=== PATIENT | female | born 1940 | race Caucasian/White ===

== ENCOUNTER → 2018-01-11 12:03 | Outpatient (CLI) | payer OTHER, SELFPAY ==
[2018-01-11 13:46] LABS: BUN Creatinine Ratio 17.8 (6-22); Blood Urea Nitrogen 16 mg/dL (7-17); Estimated Glomerular Filt Rate > 60.0 mL/min (>60)
== END ==
PROVIDERS: PCP Internal Medicine; Visit Provider Surgery
DX: R91.1 Solitary pulmonary nodule (principal); Z01.812 Encounter for preprocedural laboratory examination
CPT/HCPCS: 36415; 82565; 84520

== ENCOUNTER → 2018-01-14 10:58 | Outpatient (CLI) | payer OTHER, SELFPAY ==
--- NOTE | 2018-01-14 11:11 | DI.CT.S_ITS ---
PROCEDURE: CT CHEST WO CON INDICATIONS: Left lung mass TECHNIQUE: Noncontrast 2.0-2.5 mm thick sections acquired from the pulmonary apices to the posterior costophrenic angles. 7 mm thick coronal and sagittal MIP reformats were then acquired. A low radiation dose technique was utilized. COMPARISON: [facility], [place], ABDOMEN/PELVIS WITHOUT CONTRAS, 05/31/2017, 13:12. [facility], [place], PET/CT SKULL BASE TO MID THIGH, 06/25/2017, 10:09. FINDINGS: Image quality: Diagnostic, given the low radiation dose technique. Lungs and pleura: Multiple bilateral subcentimeter pulmonary nodules are identified and unchanged. The previously noted 1 cm nodule in the left base has markedly decreased in size, measuring approximately 2-3 mm. No new nodules are noted. Mediastinum: Heart size is normal. No pericardial effusion. No mediastinal adenopathy by size criteria. Thoracic aorta and central pulmonary arteries are normal in size. Esophagus is normal in caliber. No hiatal hernia. Bones and chest wall: No suspicious bony lesions. No vertebral body compression fractures. No axillary or supraclavicular adenopathy by size criteria. Thyroid gland is unremarkable. Abdomen: Visualized upper abdomen solid organs and bowel loops appear normal in the absence of contrast. IMPRESSION: 1. Previously identified bilateral subcentimeter pulmonary nodules are unchanged. No new nodules are identified. 2. Previously noted 1 cm nodule in the left base has markedly decreased in size now measuring approximately 2-3 mm. 6-9 month interval followup is recommended. Dictated by: Bren Huggins M.D. on 01/14/2018 at 11:52 Approved by: Bren Huggins M.D. on 01/14/2018 at 12:00
== END ==
PROVIDERS: Family Provider Internal Medicine; PCP Internal Medicine; Visit Provider Surgery
DX: R91.8 Other nonspecific abnormal finding of lung field (principal)
CPT/HCPCS: 71250

== ENCOUNTER → 2018-02-28 12:05 | Outpatient (CLI) | payer OTHER, SELFPAY ==
--- NOTE | 2018-02-28 | DI.MG.S_ITS ---
BILATERAL DIGITAL SCREENING MAMMOGRAM 3D/2D WITH CAD: 02/28/2018 CLINICAL: Routine screening. Family history of breast cancer. Comparison is made to exams dated: 12/01/2016 mammogram, 11/25/2015 mammogram, and 11/14/2014 mammogram - [facility]. There are scattered fibroglandular elements in both breasts. Current study was also evaluated with a Computer Aided Detection (CAD) system. There is a mole marker on the right breast. There are mole markers on the left breast. No significant masses, calcifications, or other findings are seen in either breast. There has been no significant interval change. IMPRESSION: NEGATIVE There is no mammographic evidence of malignancy. A 1 year screening mammogram is recommended. This exam was interpreted at Station ID: [id number]. NOTE: For mammograms, a report in lay terms will be sent to the patient. Approximately 15% of breast malignancies will not be visualized mammographically. In the management of a palpable breast mass, a negative mammogram must not discourage biopsy of a clinically suspicious lesion. Electronically Signed By: Chris young/leeann:03/01/2018 23:43:31 letter sent: Normal Exam ACR BI-RADS Category 1: Negative 3341F
== END ==
PROVIDERS: PCP Internal Medicine; Visit Provider Internal Medicine
DX: Z12.31 Encounter for screening mammogram for malignant neoplasm of breast (principal); Z80.3 Family history of malignant neoplasm of breast
CPT/HCPCS: 77063; 77067

== ENCOUNTER → 2018-06-15 21:17 | Outpatient (CLI) | payer OTHER, SELFPAY | PROVIDERS: PCP Internal Medicine; Visit Provider Physician Assistant | DX: N39.0 Urinary tract infection, site not specified (principal) | CPT/HCPCS: 87086 ==

== ENCOUNTER → 2018-07-28 15:55 | Outpatient (CLI) | payer OTHER, SELFPAY ==
--- NOTE | 2018-07-28 | DI.RAD.S_ITS ---
PROCEDURE: XR SHOULDER LT MIN 2V INDICATIONS: PAIN IN LEFT SHOULDER TECHNIQUE: 3 views of the shoulder were acquired. COMPARISON: None. FINDINGS: Bones: No fractures or dislocations. No suspicious bony lesions. 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 Visualized ribs appear intact. Soft tissues: No suspicious soft tissue calcifications. IMPRESSION: Mild degenerative joint disease. Dictated by: Joel Gomez M.D. on 07/28/2018 at 17:29 Approved by: Joel Gomez M.D. on 07/28/2018 at 17:30
== END ==
PROVIDERS: PCP Internal Medicine; Visit Provider Physician Assistant
DX: M25.512 Pain in left shoulder (principal); M19.012 Primary osteoarthritis, left shoulder
CPT/HCPCS: 73030

== ENCOUNTER → 2018-08-27 10:03 | Outpatient (CLI) | payer OTHER, SELFPAY | PROVIDERS: PCP Internal Medicine; Visit Provider Physician Assistant | DX: N39.0 Urinary tract infection, site not specified (principal) | CPT/HCPCS: 87086 ==

== ENCOUNTER → 2018-10-11 10:40 | Outpatient (CLI) | payer OTHER, SELFPAY ==
--- NOTE | 2018-10-11 | DI.US.S_ITS ---
PROCEDURE: US RENAL COMPLETE INDICATIONS: RECURRENT URINARY TRACT INFECTIONS TECHNIQUE: Real-time scanning was performed of the kidneys and bladder, with image documentation. COMPARISON: [facility], US, US ABDOMEN COMPLETE, 03/24/2017, 11:16. [facility], CT, ABDOMEN/PELVIS WITHOUT CONTRAS, 05/31/2017, 13:12. FINDINGS: Kidneys: Kidneys are normal in size. Right kidney measures 8.5 cm long; left kidney measures 9.6 cm long. Right renal cortical thickness is 6 cm; left renal cortical thickness is 9 cm. Renal cortical echotexture is normal. No hydronephrosis or nephrolithiasis. No suspicious solid mass lesions. Bladder: The bladder wall may be slightly thickened. Pre-void bladder volume is 238 mL. Post-void residual is 181 mL. Pre-void images demonstrate no intraluminal masses or stones. On pre-void images, neither ureteral jets are noted with color Doppler interrogation. (Of note, ureteral jets may not be detectable in up to 25% of cases due to insufficient differences in specific gravity between ureteral and bladder urine). Miscellaneous: No free pelvic fluid. IMPRESSION: 1. Normal kidneys bilaterally. No hydronephrosis. 2. The bladder wall may be slightly thickened. There is a 181 mL postvoid residual in the bladder suggesting urinary retention. Dictated by: Joel Gomez M.D. on 10/11/2018 at 12:45 Approved by: Joel Gomez M.D. on 10/11/2018 at 12:51
== END ==
PROVIDERS: PCP Internal Medicine; Visit Provider Urology
DX: N39.0 Urinary tract infection, site not specified (principal)
CPT/HCPCS: 76770

== ENCOUNTER → 2018-11-03 11:44 | Outpatient (CLI) | payer OTHER, SELFPAY ==
--- NOTE | 2018-11-03 | DI.CT.S_ITS ---
PROCEDURE: CT SINUS SCREEN WO CON INDICATIONS: Acute maxillary sinusitis, unspecified TECHNIQUE: Noncontrast 3.0 mm axial images acquired from the frontal sinuses to the mid-sella, with coronal and sagittal reformats. For radiation dose reduction, the following was used: automated exposure control, adjustment of mA and/or kV according to patient size. COMPARISON: None. FINDINGS: Image quality: Excellent. Maxillary Sinuses: No bony remodeling or destruction. Sinuses are clear. Ethmoid Air Cells: No bony remodeling or destruction. Sinuses are clear. Sphenoid Sinuses: No bony remodeling or destruction. Sinuses are clear. Frontal Sinuses: No bony remodeling or destruction. Sinuses are clear. Ostiomeatal Complexes: Ostiomeatal complexes are patent. No Tami cells. Miscellaneous: Visualized intra-orbital contents are normal. No paradoxical turbinate curvature is found, but there is lali bullosa involving the right middle nasal turbinate measuring up to 1.5 cm in diameter and secondary leftward deviation of the midline nasal septum with associated bilateral nasal airway stenosis through that area.. No nasal septal deviation. 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 Within the paranasal sinuses, however, no inflammatory change or air fluid level was seen. Dictated by: Taran Real M.D. on 11/03/2018 at 12:49 Approved by: Taran Real M.D. on 11/03/2018 at 12:55
== END ==
PROVIDERS: PCP Internal Medicine; Visit Provider Internal Medicine
DX: J01.00 Acute maxillary sinusitis, unspecified (principal); J34.3 Hypertrophy of nasal turbinates; J34.2 Deviated nasal septum
CPT/HCPCS: 70486

== ENCOUNTER → 2019-02-10 10:06 | Outpatient (CLI) | payer OTHER, SELFPAY | PROVIDERS: PCP Internal Medicine; Visit Provider Internal Medicine | DX: M85.88 Other specified disorders of bone density and structure, other site (principal); M85.852 Other specified disorders of bone density and structure, left thigh; M85.851 Other specified disorders of bone density and structure, right thigh; Z78.0 Asymptomatic menopausal state | CPT/HCPCS: 77080 ==

== ENCOUNTER → 2019-03-02 12:14 | Outpatient (CLI) | payer OTHER, SELFPAY ==
--- NOTE | 2019-03-02 | DI.MG.S_ITS ---
BILATERAL DIGITAL SCREENING MAMMOGRAM 3D/2D WITH CAD: 03/02/2019 CLINICAL: Routine screening. Family history of breast cancer. Comparison is made to exams dated: 02/28/2018 mammogram, 12/01/2016 mammogram, and 11/25/2015 mammogram - [facility]. There are scattered fibroglandular elements in both breasts. Current study was also evaluated with a Computer Aided Detection (CAD) system. There is an irregular asymmetry in the right breast posterior depth superior region seen on the mediolateral oblique view only. There is possible architectural distortion associated with the asymmetry. No other significant masses, calcifications, or other findings are seen in either breast. IMPRESSION: INCOMPLETE: NEEDS ADDITIONAL IMAGING EVALUATION The irregular asymmetry in the right breast is indeterminate. Additional views with possible ultrasound are recommended. This exam was interpreted at Station ID: [id number]. NOTE: For mammograms, a report in lay terms will be sent to the patient. Approximately 15% of breast malignancies will not be visualized mammographically. In the management of a palpable breast mass, a negative mammogram must not discourage biopsy of a clinically suspicious lesion. Electronically Signed By: Chris Mak M.D. ecl/:03/03/2019 04:47:05 letter sent: Additional Imaging Needed ACR BI-RADS Category 0: Incomplete 3340F
== END ==
PROVIDERS: PCP Internal Medicine; Visit Provider Internal Medicine
DX: Z12.31 Encounter for screening mammogram for malignant neoplasm of breast (principal); Z80.3 Family history of malignant neoplasm of breast
CPT/HCPCS: 77063; 77067

== ENCOUNTER → 2019-03-21 13:30 | Outpatient (CLI) | payer OTHER, SELFPAY ==
--- NOTE | 2019-03-21 | DI.MG.S_ITS ---
UNILATERAL RIGHT DIGITAL DIAGNOSTIC MAMMOGRAM 3D/2D WITH ADDITIONAL VIEWS: 03/21/2019 CLINICAL: Additional evaluation requested from prior study. Comparison is made to exams dated: 03/02/2019 mammogram, 02/28/2018 mammogram, and 12/01/2016 mammogram - [facility]. There are scattered fibroglandular elements in right breast. The asymmetry in the right breast posterior depth superior region seen on the mediolateral oblique view only is not seen in additional views. No other significant masses or calcifications are seen in the breast. IMPRESSION: The asymmetry in the right breast seen on the screening mammogram likely respresents superimposed fibroglandular tissue and is benign. There is no mammographic evidence of malignancy. A 1 year screening mammogram is recommended. This exam was interpreted at Station ID: [id number]. NOTE: For mammograms, a report in lay terms will be sent to the patient. Approximately 15% of breast malignancies will not be visualized mammographically. In the management of a palpable breast mass, a negative mammogram must not discourage biopsy of a clinically suspicious lesion. Electronically Signed By: Alisia Rivera M.D. lk/:03/21/2019 13:58:32 letter sent: Normal Exam ACR BI-RADS Category 2: Benign Finding(s) 3342F
== END ==
PROVIDERS: PCP Internal Medicine; Visit Provider Internal Medicine
DX: R92.8 Other abnormal and inconclusive findings on diagnostic imaging of breast (principal); N64.89 Other specified disorders of breast
CPT/HCPCS: 77065; G0279

== ENCOUNTER → 2019-05-25 15:28 | Outpatient (ROUT) | payer OTHER, SELFPAY ==
[2019-05-25 16:59] LABS: Aspartate Aminotransferase 32 IU/L (14-36); BUN Creatinine Ratio 17.5 (6-22); Blood Urea Nitrogen 14 mg/dL (7-17); Calcium 9.1 mg/dL (8.4-10.2); Carbon Dioxide 30 mmol/L (22-32); Chloride 96 mmol/L (98-107); Cholesterol 137 mg/dL (140-199); Estimated Glomerular Filt Rate > 60.0 mL/min (>60); Glucose 70 mg/dL (80-110); HDL Cholesterol 58 mg/dL (40-60); HEMOLYSIS < 15 (0-50); LDL Cholesterol Calculated 66 mg/dL (<100); Potassium 4.4 mmol/L (3.4-5.1); Sodium 133 mmol/L (137-145); Triglycerides 63 mg/dL (35-150)
== END ==
PROVIDERS: PCP Internal Medicine; Visit Provider Internal Medicine
DX: E78.2 Mixed hyperlipidemia (principal); I10 Essential (primary) hypertension
CPT/HCPCS: 80048; 80061; 84450

== ENCOUNTER → 2020-03-22 10:30 | Outpatient (CLI) | payer MEDICARE, SELFPAY ==
--- NOTE | 2020-03-22 | DI.MG.S_ITS ---
BILATERAL DIGITAL SCREENING MAMMOGRAM 3D/2D WITH CAD: 03/22/2020 CLINICAL: Routine screening. Family history of breast cancer. Comparison is made to exams dated: 03/02/2019 mammogram, 02/28/2018 mammogram, 12/01/2016 mammogram, 11/04/2011 mammogram, 11/10/2013 mammogram, and 11/08/2012 mammogram - [facility]. There are scattered fibroglandular elements in both breasts. Current study was also evaluated with a Computer Aided Detection (CAD) system. No significant masses, calcifications, or other findings are seen in either breast. There has been no significant interval change. IMPRESSION: NEGATIVE There is no mammographic evidence of malignancy. A 1 year screening mammogram is recommended. This exam was interpreted at Station ID: [id number]. NOTE: For mammograms, a report in lay terms will be sent to the patient. Approximately 15% of breast malignancies will not be visualized mammographically. In the management of a palpable breast mass, a negative mammogram must not discourage biopsy of a clinically suspicious lesion. Electronically Signed By: Armond andrea/leeann:03/22/2020 12:47:11 letter sent: Normal Exam ACR BI-RADS Category 1: Negative 3341F
== END ==
PROVIDERS: PCP Internal Medicine; Referring Provider Internal Medicine; Visit Provider Internal Medicine
DX: Z12.31 Encounter for screening mammogram for malignant neoplasm of breast (principal); Z80.3 Family history of malignant neoplasm of breast
CPT/HCPCS: 77063; 77067

== ENCOUNTER → 2020-05-31 18:51 | Outpatient (ROUT) | payer MEDICARE, SELFPAY ==
[2020-05-31 19:20] LABS: Aspartate Aminotransferase 30 IU/L (14-36); BUN Creatinine Ratio 22.5 (6-22); Blood Urea Nitrogen 18 mg/dL (7-17); Calcium 9.8 mg/dL (8.4-10.2); Carbon Dioxide 35 mmol/L (22-32); Chloride 94 mmol/L (98-107); Cholesterol 137 mg/dL (140-199); Estimated Glomerular Filt Rate > 60.0 mL/min (>60); Glucose 83 mg/dL (80-110); HDL Cholesterol 56 mg/dL (40-60); HEMOLYSIS < 15 (0-50); LDL Cholesterol Calculated 68 mg/dL (<100); Potassium 4.5 mmol/L (3.4-5.1); Sodium 132 mmol/L (137-145); Triglycerides 64 mg/dL (35-150)
== END ==
PROVIDERS: PCP Internal Medicine; Visit Provider Internal Medicine
DX: I10 Essential (primary) hypertension (principal); E78.2 Mixed hyperlipidemia
CPT/HCPCS: 80048; 80061; 84450

== ENCOUNTER → 2021-03-25 15:38 | Outpatient (CLI) | payer OTHER, SELFPAY ==
--- NOTE | 2021-03-25 15:39 | DI.MG.S_ITS ---
BILATERAL DIGITAL SCREENING MAMMOGRAM 3D/2D WITH CAD: 03/25/2021 CLINICAL: Routine screening. Family history of breast cancer. Baseline exam. Comparison is made to exams dated: 03/21/2019 mammogram, 03/22/2020 mammogram, 03/02/2019 mammogram, and 02/28/2018 mammogram - [facility]. There are scattered fibroglandular elements in both breasts. Current study was also evaluated with a Computer Aided Detection (CAD) system. There is a mole marker on both breasts. No significant masses, calcifications, or other findings are seen in either breast. There has been no significant interval change. IMPRESSION: NEGATIVE There is no mammographic evidence of malignancy. A 1 year screening mammogram is recommended. This exam was interpreted at Station ID: [id number]. NOTE: For mammograms, a report in lay terms will be sent to the patient. Approximately 15% of breast malignancies will not be visualized mammographically. In the management of a palpable breast mass, a negative mammogram must not discourage biopsy of a clinically suspicious lesion. Electronically Signed By: Troy Platt acr/penrad:03/25/2021 17:16:24 letter sent: Normal Exam ACR BI-RADS Category 1: Negative 3341F
== END ==
PROVIDERS: PCP Internal Medicine; Referring Provider Internal Medicine; Visit Provider Internal Medicine
DX: Z12.31 Encounter for screening mammogram for malignant neoplasm of breast (principal); Z80.3 Family history of malignant neoplasm of breast
CPT/HCPCS: 77063; 77067

== ENCOUNTER → 2021-06-09 10:56 | Outpatient (CLI) | payer OTHER, MEDICARE, SELFPAY ==
--- NOTE | 2021-06-09 10:59 | DI.RAD.S_ITS ---
PROCEDURE: XR DEXA AXIAL SKELETON INDICATIONS: Age-related osteoporosis without current pathologi COMPARISON: [facility], CR, XR DEXA AXIAL SKELETON, 02/10/2019, 10:34. FINDINGS: This blank DEXA report has been sent in error by the PACS system. The correct and complete report will be forthcoming in 1-2 days. Thank you for your patience and understanding. Dictated by: Agueda Rivas MD, PhD on 06/09/2021 at 11:28 Approved by: Agueda Rivas MD, PhD on 06/09/2021 at 11:28
== END ==
PROVIDERS: PCP Internal Medicine; Referring Provider Internal Medicine Endocrinology, Diabetes & Metabolism; Visit Provider Internal Medicine Endocrinology, Diabetes & Metabolism
DX: M85.852 Other specified disorders of bone density and structure, left thigh (principal); Z78.0 Asymptomatic menopausal state
CPT/HCPCS: 77080

== ENCOUNTER → 2021-08-10 09:20 | Outpatient (CLI) | payer OTHER, SELFPAY | PROVIDERS: PCP Internal Medicine; Visit Provider Nurse Practitioner Family | DX: N39.0 Urinary tract infection, site not specified (principal) | CPT/HCPCS: 87077; 87086 ==

== ENCOUNTER → 2022-01-23 11:03 | Outpatient (CLI) | payer OTHER, SELFPAY ==
[2022-01-23 12:28] LABS: Hematocrit 35.2 % (36-46); Hemoglobin 11.7 g/dL (12.0-16.0); Mean Corpuscular HGB Conc 33.2 % (30-36); Mean Corpuscular Hemoglobin 30.1 PG (26-34); Mean Corpuscular Volume 90.6 fL (80-100); Platelet Count 211 X10^3/uL (150-400); Red Blood Cell Count 3.89 X10^6/uL (4.0-5.2); Red Cell Distribution Width 14.1 % (11.6-14.8); White Blood Cell Count 4.6 X10^3/uL (4.5-11.0)
[2022-01-23 13:04] LABS: Alanine Aminotransferase 14 IU/L (<35); Albumin 4.3 g/dL (3.5-5.0); Albumin Globulin Ratio 1.4 (1.0-2.8); Alkaline Phosphatase 62 U/L (38-126); Aspartate Aminotransferase 32 IU/L (14-36); BUN Creatinine Ratio 19.4 (6-22); Bilirubin Total 0.3 mg/dL (0.2-1.3); Blood Urea Nitrogen 19 mg/dL (7-17); Calcium 9.7 mg/dL (8.4-10.2); Carbon Dioxide 33 mmol/L (22-32); Chloride 97 mmol/L (98-107); Cholesterol 140 mg/dL (140-199); Estimated Glomerular Filt Rate 58 mL/min (>60); Glucose 78 mg/dL (80-110); HDL Cholesterol 54 mg/dL (40-60); HEMOLYSIS < 15 (0-50); LDL Cholesterol Calculated 73 mg/dL (<100); Potassium 4.6 mmol/L (3.4-5.1); Sodium 134 mmol/L (137-145); Total Protein 7.3 g/dL (6.3-8.2); Triglycerides 65 mg/dL (35-150)
[2022-01-23 13:35] LABS: TSH w/ Reflex to FT4 7.71 uIU/mL (0.47-4.68)
[2022-01-23 16:01] LABS: Free T4, Direct Thyroxine 1.28 ng/dL (0.78-2.19)
== END ==
PROVIDERS: PCP Internal Medicine; Referring Provider Internal Medicine; Visit Provider Internal Medicine
DX: E78.2 Mixed hyperlipidemia (principal); L12.0 Bullous pemphigoid
CPT/HCPCS: 36415; 80053; 80061; 84439; 84443; 85027

== ENCOUNTER → 2022-03-26 13:07 | Outpatient (CLI) | payer OTHER, SELFPAY ==
--- NOTE | 2022-03-26 | DI.MG.S_ITS ---
BILATERAL DIGITAL SCREENING MAMMOGRAM 3D/2D WITH CAD: 03/26/2022 CLINICAL: Routine screening. Family history of breast cancer. Comparison is made to exams dated: 03/25/2021 mammogram, 03/22/2020 mammogram, 03/21/2019 mammogram, and 03/02/2019 mammogram - [facility]. There are scattered areas of fibroglandular density in both breasts (category b / 25%-50% glandular tissue). Current study was also evaluated with a Computer Aided Detection (CAD) system. There is a mole marker on both breasts. No significant masses, calcifications, or other findings are seen in either breast. There has been no significant interval change. IMPRESSION: NEGATIVE There is no mammographic evidence of malignancy. A 1 year screening mammogram is recommended. Based on the Tyrer Cuzick model (a risk assessment model) the patient's lifetime risk is 0.9% and her 10 year risk is 0.0%. According to the ACR, ACS, and NCCN guidelines, an annual breast MRI exam along with mammogram is recommended if the patient's lifetime risk is 20% or greater. This exam was interpreted at Station ID: [id number]. NOTE: For mammograms, a report in lay terms will be sent to the patient. Approximately 15% of breast malignancies will not be visualized mammographically. In the management of a palpable breast mass, a negative mammogram must not discourage biopsy of a clinically suspicious lesion. Electronically Signed By: Jessee Alicea M.D., jr/leeann:03/26/2022 14:42:03 letter sent: Normal Exam ACR BI-RADS Category 1: Negative 3341F
== END ==
PROVIDERS: PCP Internal Medicine; Referring Provider Internal Medicine; Visit Provider Internal Medicine
DX: Z12.31 Encounter for screening mammogram for malignant neoplasm of breast (principal); Z80.3 Family history of malignant neoplasm of breast
CPT/HCPCS: 77063; 77067

== ENCOUNTER → 2022-05-27 14:02 | Outpatient (CLI) | payer OTHER, SELFPAY ==
[2022-05-27 15:07] LABS: Influenza A - CEPHEID Flu A NEGATIVE (NEGATIVE); Influenza B - CEPHEID Flu B NEGATIVE (NEGATIVE); Respiratory Syncytial Virus Negative (Negative)
[2022-05-27 15:08] LABS: COVID-19 CEPHEID 4-PLEX PCR Negative (Negative)
== END ==
PROVIDERS: PCP Internal Medicine; Visit Provider Registered Nurse
DX: H92.09 Otalgia, unspecified ear (principal); R09.81 Nasal congestion; Z20.822 Contact with and (suspected) exposure to COVID-19
CPT/HCPCS: 0241U

== ENCOUNTER → 2023-01-26 15:37 | Outpatient (CLI) | payer OTHER, SELFPAY ==
[2023-01-26 16:38] LABS: Blood Urea Nitrogen 18 mg/dL (7-17); Calcium 8.9 mg/dL (8.4-10.2); Chloride 100 mmol/L (98-107); HEMOLYSIS < 15 (0-50); Triglycerides 68 mg/dL (35-150)
[2023-01-26 17:01] LABS: Aspartate Aminotransferase 35 IU/L (14-36); BUN Creatinine Ratio 19.1 (6-22); Carbon Dioxide 29 mmol/L (22-32); Cholesterol 140 mg/dL (140-199); Estimated Glomerular Filt Rate > 60 mL/min (>60); Glucose 87 mg/dL (80-110); HDL Cholesterol 52 mg/dL (40-60); LDL Cholesterol Calculated 74 mg/dL (<100); Potassium 4.5 mmol/L (3.4-5.1); Sodium 132 mmol/L (137-145)
== END ==
PROVIDERS: PCP Internal Medicine; Referring Provider Internal Medicine; Visit Provider Internal Medicine
DX: E78.2 Mixed hyperlipidemia (principal); L12.0 Bullous pemphigoid
CPT/HCPCS: 80048; 80061; 84450

== ENCOUNTER → 2023-03-30 13:56 | Outpatient (CLI) | payer OTHER, SELFPAY ==
--- NOTE | 2023-03-30 | DI.MG.S_ITS ---
BILATERAL DIGITAL SCREENING MAMMOGRAM 3D/2D WITH CAD: 03/30/2023 CLINICAL: Routine screening. Family history of breast cancer. Comparison is made to exams dated: 03/26/2022 mammogram, 03/25/2021 mammogram, and 03/22/2020 mammogram - [facility]. There are scattered areas of fibroglandular density in both breasts (category b / 25%-50% glandular tissue). Current study was also evaluated with a Computer Aided Detection (CAD) system. There is a mole marker on both breasts. No significant masses, calcifications, or other findings are seen in either breast. There has been no significant interval change. IMPRESSION: NEGATIVE There is no mammographic evidence of malignancy. A 1 year screening mammogram is recommended. Based on the Tyrer Cuzick model (a risk assessment model) the patient's lifetime risk is 0.6% and her 10 year risk is 0.0%. According to the ACR, ACS, and NCCN guidelines, an annual breast MRI exam along with mammogram is recommended if the patient's lifetime risk is 20% or greater. This exam was interpreted at Station ID: [id number]. NOTE: For mammograms, a report in lay terms will be sent to the patient. Approximately 15% of breast malignancies will not be visualized mammographically. In the management of a palpable breast mass, a negative mammogram must not discourage biopsy of a clinically suspicious lesion. Electronically Signed By: Alisia abdalla/leeann:03/30/2023 16:47:05 letter sent: Normal Exam ACR BI-RADS Category 1: Negative 3341F
== END ==
PROVIDERS: PCP Internal Medicine; Referring Provider Internal Medicine; Visit Provider Internal Medicine
DX: Z12.31 Encounter for screening mammogram for malignant neoplasm of breast (principal); Z80.3 Family history of malignant neoplasm of breast
CPT/HCPCS: 77063; 77067

== ENCOUNTER → 2023-05-27 14:13 | Outpatient (CLI) | payer OTHER, SELFPAY ==
[2023-05-27 15:15] LABS: Add Manual Diff / Slide Review NO; Basophils Absolute Auto 0 /uL (0-100); Basophils Percent Auto 0.3 % (0-2); Eosinophils Absolute Auto 0 /uL (0-450); Eosinophils Percent Auto 0.1 % (2-4); Hematocrit 36.4 % (36-46); Hemoglobin 12.1 g/dL (12.0-16.0); Lymphocytes Absolute Auto 600 /uL (1100-4500); Lymphocytes Percent Auto 7.7 % (25-40); Mean Corpuscular HGB Conc 33.3 % (30-36); Mean Corpuscular Hemoglobin 31.2 PG (26-34); Mean Corpuscular Volume 93.8 fL (80-100); Monocytes Absolute Auto 400 /uL (0-900); Monocytes Percent Auto 4.9 % (3-14); Neutrophils Absolute Auto 6300 /uL (1500-7000); Platelet Count 209 X10^3/uL (150-400); Red Blood Cell Count 3.87 X10^6/uL (4.0-5.2); Red Cell Distribution Width 15.2 % (11.6-14.8); White Blood Cell Count 7.3 X10^3/uL (4.5-11.0)
[2023-05-27 19:42] LABS: Alanine Aminotransferase 24 IU/L (<35); Albumin 3.7 g/dL (3.5-5.0); Albumin Globulin Ratio 1.5 (1.0-2.8); Alkaline Phosphatase 87 U/L (38-126); Aspartate Aminotransferase 28 IU/L (14-36); BUN Creatinine Ratio 22.1 (6-22); Bilirubin Total 0.5 mg/dL (0.2-1.3); Blood Urea Nitrogen 21 mg/dL (7-17); Calcium 8.7 mg/dL (8.4-10.2); Carbon Dioxide 25 mmol/L (22-32); Chloride 98 mmol/L (98-107); Estimated Glomerular Filt Rate 59 mL/min (>60); Globulin 2.5 g/dL (1.7-4.1); Glucose 133 mg/dL (80-110); HEMOLYSIS < 15 (0-50); Potassium 4.3 mmol/L (3.4-5.1); Sodium 129 mmol/L (137-145); Total Protein 6.2 g/dL (6.3-8.2)
[2023-05-27 19:50] LABS: NT-proBNP (BNP-Adult 18+) 326 pg/mL (<450)
[2023-05-28 20:09] LABS: Vitamin B12 396 pg/mL (239-931)
== END ==
PROVIDERS: PCP Internal Medicine; Referring Provider Physician Assistant; Visit Provider Physician Assistant
DX: M25.473 Effusion, unspecified ankle (principal)
CPT/HCPCS: 36415; 80053; 82607; 83880; 85025

== ENCOUNTER → 2023-05-31 14:07 | Outpatient (CLI) | payer OTHER, SELFPAY ==
--- NOTE | 2023-05-31 14:08 | DI.US.S_ITS ---
PROCEDURE: US PERIPH VENOUS LOW EXTREM LT INDICATIONS: ANKLE SWELLING - RULE OUT DEEP VEIN THROMBOSIS TECHNIQUE: Real-time imaging, as well as color and pulse Doppler interrogation, were performed of the lower extremity deep veins from the inguinal ligament to the popliteal fossa, with documentation of the visualized calf veins. COMPARISON: None. FINDINGS: The common femoral, femoral, popliteal, and the visualized calf veins are normally compressible, and free of intraluminal thrombus. Color and pulse Doppler demonstrate normal phasic intraluminal flow. There is normal augmentation response to distal compression maneuver. IMPRESSION: No findings of left lower extremity deep venous thrombosis. Dictated by: Lisa Anderson M.D. on 05/31/2023 at 15:36 Approved by: Lisa Anderson M.D. on 05/31/2023 at 15:43
== END ==
PROVIDERS: PCP Internal Medicine; Referring Provider Physician Assistant; Visit Provider Physician Assistant
DX: M25.473 Effusion, unspecified ankle (principal)
CPT/HCPCS: 93971

== ENCOUNTER → 2023-08-10 16:11 | Outpatient (CLI) | payer OTHER, SELFPAY | PROVIDERS: PCP Internal Medicine; Visit Provider Physician Assistant | DX: R30.0 Dysuria (principal) | CPT/HCPCS: 87086 ==

== ENCOUNTER → 2023-09-03 11:08 | Outpatient (CLI) | payer OTHER, SELFPAY ==
[2023-09-03 12:22] LABS: Hemoglobin A1C% w Est Avg Glu 5.3 % (4.0-6.0)
[2023-09-03 13:11] LABS: BUN Creatinine Ratio 18.3 (6-22); Blood Urea Nitrogen 19 mg/dL (7-17); Calcium 9.2 mg/dL (8.4-10.2); Carbon Dioxide 29 mmol/L (22-32); Chloride 102 mmol/L (98-107); Estimated Glomerular Filt Rate 53 mL/min (>60); Glucose 81 mg/dL (80-110); HEMOLYSIS < 15 (0-50); Potassium 4.5 mmol/L (3.4-5.1); Sodium 135 mmol/L (137-145)
[2023-09-03 13:33] LABS: TSH w/ Reflex to FT4 9.48 uIU/mL (0.47-4.68)
[2023-09-03 13:53] LABS: Vitamin B12 Reflex MMA if <400 484 pg/mL (239-931)
== END ==
PROVIDERS: PCP Internal Medicine; Referring Provider Internal Medicine; Visit Provider Internal Medicine
DX: R73.09 Other abnormal glucose (principal); E87.1 Hypo-osmolality and hyponatremia; E53.8 Deficiency of other specified B group vitamins; R79.89 Other specified abnormal findings of blood chemistry
CPT/HCPCS: 36415; 80048; 82607; 83036; 84439; 84443

== ENCOUNTER → 2024-02-01 15:17 | Outpatient (CLI) | payer OTHER, SELFPAY ==
[2024-02-01 16:58] LABS: Aspartate Aminotransferase 28 IU/L (14-36); BUN Creatinine Ratio 18.4 (6-22); Blood Urea Nitrogen 19 mg/dL (7-17); Calcium 8.8 mg/dL (8.4-10.2); Carbon Dioxide 27 mmol/L (22-32); Chloride 102 mmol/L (98-107); Cholesterol 137 mg/dL (140-199); Estimated Glomerular Filt Rate 54 mL/min (>60); Glucose 88 mg/dL (80-110); HDL Cholesterol 57 mg/dL (40-60); HEMOLYSIS < 15 (0-50); LDL Cholesterol Calculated 63 mg/dL (<100); Potassium 4.4 mmol/L (3.4-5.1); Sodium 136 mmol/L (137-145); Triglycerides 84 mg/dL (35-150)
[2024-02-01 17:03] LABS: Hemoglobin A1C% w Est Avg Glu 5.3 % (4.0-6.0)
[2024-02-01 17:33] LABS: TSH w/ Reflex to FT4 3.68 uIU/mL (0.47-4.68)
[2024-02-02 23:12] LABS: Thyroid Peroxidase Antibodies 140 IU/mL (0-34)
== END ==
PROVIDERS: PCP Internal Medicine; Referring Provider Internal Medicine; Visit Provider Internal Medicine
DX: R73.01 Impaired fasting glucose (principal); E78.2 Mixed hyperlipidemia; E03.9 Hypothyroidism, unspecified
CPT/HCPCS: 36415; 80048; 80061; 83036; 84443; 84450; 86376

== ENCOUNTER → 2024-03-08 17:07 | Outpatient (CLI) | payer OTHER, SELFPAY ==
--- NOTE | 2024-03-08 17:08 | DI.MRI.S_ITS ---
PROCEDURE: MR HEAD/BRAIN WO/W CON INDICATIONS: Left pupil larger than left and fixed/nonresponsive TECHNIQUE: Noncontrast axial T1 spin echo, axial T2 fast spin echo, sagittal and axial FLAIR, coronal T2 fast spin echo, axial gradient echo, axial diffusion and ADC through the brain. After the administration of contrast, axial and coronal and sagittal T1 spin echo with fat saturation through the brain. COMPARISON: None. FINDINGS: Image quality: Excellent. CSF spaces: Basal cisterns are patent. No extra-axial fluid collections. Ventricles are normal in size and shape. Brain: No midline shift. No intracranial bleeds or masses. No abnormal intracranial enhancement. There is cerebral volume loss for age. There is periventricular white matter chronic small vessel ischemic change. The brainstem appears normal. Diffusion-weighted images demonstrate no acute infarct. No chronic ischemic insults. Normal intravascular flow voids are present. Incidental note is made of a developmental venous anomaly within the right medial cerebellum, as on series 13, image 57 and on series 15, image 80. Skull and face: Calvarial marrow is normal in signal. Orbits appear normal. Note is made of bilateral lens replacements. Sinuses: Sinuses and mastoids appear clear. IMPRESSION: No imaging explanation is found for this patient's presenting symptoms. No masses or abnormal enhancement can be seen. Additional findings: Bilateral lens replacements Right medial cerebellum developmental venous anomaly Dictated by: Vini Torres M.D. on 03/09/2024 at 10:39 Approved by: Vini Torres M.D. on 03/09/2024 at 10:41
== END ==
PROVIDERS: Family Provider Internal Medicine; PCP Internal Medicine; Referring Provider Physician Assistant; Visit Provider Physician Assistant
DX: H57.02 Anisocoria (principal); H57.04 Mydriasis; H57.9 Unspecified disorder of eye and adnexa; Z96.1 Presence of intraocular lens
CPT/HCPCS: 70553; A9579

== ENCOUNTER → 2024-04-14 09:58 | Outpatient (CLI) | payer OTHER, SELFPAY ==
--- NOTE | 2024-04-14 09:58 | DI.MG.S_ITS ---
BILATERAL DIGITAL SCREENING MAMMOGRAM 3D/2D WITH CAD: 04/14/2024 CLINICAL: Routine screening. Family history of breast cancer. Comparison is made to exams dated: 03/30/2023 mammogram, 03/26/2022 mammogram, and 03/25/2021 mammogram - [facility]. There are scattered areas of fibroglandular density (category b / 25%-50% glandular tissue). Current study was also evaluated with a Computer Aided Detection (CAD) system. There is a mole marker on both breasts. No significant masses, calcifications, or other findings are seen in either breast. There has been no significant interval change. IMPRESSION: NEGATIVE There is no mammographic evidence of malignancy. A 1 year screening mammogram is recommended. Based on the Tyrer Cuzick model (a risk assessment model) the patient's lifetime risk is 0.3% and her 10 year risk is 0.0%. According to the ACR, ACS, and NCCN guidelines, an annual breast MRI exam along with mammogram is recommended if the patient's lifetime risk is 20% or greater. This exam was interpreted at Station ID: [id number]. NOTE: For mammograms, a report in lay terms will be sent to the patient. Approximately 15% of breast malignancies will not be visualized mammographically. In the management of a palpable breast mass, a negative mammogram must not discourage biopsy of a clinically suspicious lesion. Electronically Signed By: Armond andrea/leeann:04/17/2024 07:43:55 letter sent: Normal Exam ACR BI-RADS Category 1: Negative
== END ==
PROVIDERS: Family Provider Internal Medicine; PCP Internal Medicine; Referring Provider Internal Medicine; Visit Provider Internal Medicine
DX: Z12.31 Encounter for screening mammogram for malignant neoplasm of breast (principal); Z80.3 Family history of malignant neoplasm of breast
CPT/HCPCS: 77063; 77067

== ENCOUNTER 2024-05-03 09:45 | Outpatient (RCR) | payer OTHER, SELFPAY ==
--- NOTE | 2024-03-27 13:45 | PT.OIE ---
Current Diagnoses Strain of unspecified muscle(s) and tendon(s) at lower leg level, right leg, subsequent encounter (03/27/24) History of falling (03/27/24) Past Medical History (Last Updated 02/01/24 @ 13:08 by Damien Pyle MD) Abnormal Pap smear of cervix Acquired hypothyroidism Allergic rhinitis Asthma, mild intermittent Chicken pox Chronic back pain (~1960) Colon polyps Esophageal ring (~2010) Frequent UTI (~1961) Genital warts (~1987) Geographic tongue GERD (gastroesophageal reflux disease) (~2018) Heavy menstrual period Impaired fasting glucose Measles Menopausal syndrome Mumps Osteopenia (~2014) Osteopenia Polyneuropathy, unspecified Recurrent sinusitis Saphenofemoral venous reflux (~2017) Seasonal allergies (~1959) Venous (peripheral) insufficiency Past Surgical History (Last Reviewed 02/01/24 @ 12:59 by Damien Pyle MD) Anesthesia History of cataract removal with insertion of prosthetic lens (10/29/15) History of cataract removal with insertion of prosthetic lens (11/12/15) History of colonoscopy (~2010) History of surgery (~2017) Status post arthroscopy (~2013) Status post hysterectomy (~1978) Visit Care Team Role Provider Type Damien Pyle MD Family Provider Physician Primary Care Provider Specialty: Internal Medicine Address: [address] [place] [address] Email: [email or web address] Woods PA-C Attending Provider Advanced Paster Hat Lining Referring Provider Specialty: Medical Wound Care Address: [address] [place] [address], [id number] Email: [email or web address] Physical Therapy Initial Evaluation PT-OP-A Visit Information Start: 03/21/24 12:12 Freq: Status: Active Protocol: Document 03/27/24 07:26 MB (Rec: 03/27/24 08:14 MB [id number]) Out-Patient Physical Therapy Visit Information Visit Information Visit Type Initial Evaluation Visit Note [employer] Progress note by 04/27/24 Visit Start Time 07:26 Visit Stop Time 08:06 Visit Number 1 Number of QUALITY ASSURANCE REPRESENTATIVE Visits 0 Evaluation Information Evaluation Date 03/27/24 Precautions Precautions Pt is not on blood thinners, pt has white coat syndrome when checking BP PT-OP-B Current Condition Start: 03/21/24 12:12 Freq: Status: Active Protocol: Document 03/27/24 07:26 MB (Rec: 03/27/24 08:14 [id number]) Current Condition History of Current Condition Onset Date 02/26/24 Current Complaints Right knee pain History of Current Condition Pt reports a S1-S2 nerve problem and periodically, she has pulled hamstrings and they are always tight. On the 25 of February, she had typically hamstring tightness that moved to inner thigh. She took a step down and then her right knee hurt. The walk-in clinic person stated that she strained her leg. It's been about a month and the knee is not right. She has extremely sore medial knee and lateral knee discomfort on the right. Her right calf is also sore. She tried the stairs again last week and she got sharp pain in the middle of her right knee. She is side stepping down the steps now, leading with LLE. Pt has soreness over the right knee in general. She came to therapy at this clinic at the past but had scheduling problems and could not get in. MRI brain 03/07 negative and US doppler LLE 06/05 negative. Surgery on left saphenous vein 12/09/23 and similar surgery on right leg 5 years ago. Pt denies balance issues. She sleeps well and sleeps on her side without pillow support. Pt denies numbness and tingling in legs. She does leg stretching everyday. Pt states her sacrum has not been acting up and no trouble with bowel and bladder. She had hysterectomy years ago without trouble. Treatment Goals Patient/Caregiver Goals To decrease right knee pain PT-OP-C Subjective Start: 03/21/24 12:12 Freq: Status: Active Protocol: Document 03/27/24 07:26 MB (Rec: 03/27/24 08:14 MB [id number]) OP-PT Subjective Patient Comments Patient Comments See history of current condition Patient Questionnaires Lower Extremity Functional Scale LEFS Score 38 Lymphedema Life Impact Score Lymphedema Impairment 40 to 59% Impaired (Score 47- 60) PT-OP-G Mobility & Gait Start: 03/21/24 12:12 Freq: Status: Active Protocol: Document 03/27/24 07:26 MB (Rec: 03/27/24 08:14 MB [id number]) OP Gait Assessment Comments Gait Comments Gait with shoes donned d/t reported leg length discrepancy with left leg shorter than the right and full-length cork in left shoe: Decreased arm swing, increased Kaitlin angle on the left and left hip mildly weaker than the right as far as Trendelenburg, right leg appears stiffer with gait and and ongoing mild functional leg length difference with left shorter than right with gait, spinal changes and right iliac crest higher than the left. PT-OP-J Posture/Palpation/Skin Start: 03/21/24 12:12 Freq: Status: Active Protocol: Document 03/27/24 07:26 MB (Rec: 03/27/24 08:14 MB [id number]) Posture Evaluation Comments Posture Comments Pt wearing shoes d/t leg length difference and cork full length in left shoe: right shoulder more forward and high compared to the left (pt reports old right rotator cuff injury and limited range) , Dowager's hump and then decreased thoracic kyphosis upper to middle thoracic spine and then stiffness/kyphosis lower thoracic spine, decreased lumbar lordosis, right iliac crest higher than the left, right knee mildly higher than left. PT cannot check SI mobility in supine d/t pt engages abdomen and she has increased soft tisse over anterior pelvis, tender to touch. Pt cannot relax leg for SLR right and helps PT. Left passive SLR grossly 40 deg, very tight. PT-OP-M Strength Start: 03/21/24 12:12 Freq: Status: Active Protocol: Document 03/27/24 07:26 MB (Rec: 03/27/24 08:14 MB [id number]) Hip Strength Hip Manual Muscle Testing Right Flexion (L2) 4+ Good+ Abduction 4+ Good+ Comments Pt does not tolerate passive ER or IR or Scour Left Flexion (L2) 4+ Good+ Abduction 3+ Fair+ Comments Minimal tolerance to PROM in supine Knee Strength Knee Manual Muscle Testing Right Flexion (S2) 4+ Good+ Extension (L3) 4- Good- Left Flexion (S2) 4 Good Extension (L3) 4- Good- Ankle/Foot Strength Ankle and Foot Manual Muscle Testing Right Dorsiflexion (L4) 4 Good Comments Pt cannot perform one heel raise on either leg Left Dorsiflexion (L4) 5 Normal Comments Pt cannot perform one heel raise on either leg Toe Strength Toe Manual Muscle Testing Right Great Toe Extension 4 Good Left Great Toe Extension 5 Normal PT-OP-Q Treatments Start: 03/21/24 12:12 Freq: Status: Active Protocol: Document 03/27/24 07:26 MB (Rec: 03/27/24 08:14 MB [id number]) Therapeutic Exercises Supine Exercises Pelvic realignment exercises Side bilateral Equipment Used Blue ball Reps/Minutes 5 reps, 3 sec hold all exercises in order Comments Feet together ball squeeze iso , knee opp ankle iso, thigh press down iso Self-Care/Home Management Treatment Education Patient Education Body Mechanics,Fall Risk,Home Exercise Program,Joint Protection,Pain Management, Posture,Safety Other Education PT ed pt on benefits of log rolling, keeping pillow between legs in side lying, plan for OPPT, goals for alignment, review her exercises she is already performing at home, manual work, flexibility and then strengthening and balance and pt is agreeable to plan. She and partner leave [place] for [place] the end of April and she needs to finish up PT by 05/05 PT-OP-T Assessment and Plan Start: 03/21/24 12:12 Freq: Status: Active Protocol: Document 03/27/24 07:26 MB (Rec: 03/27/24 08:14 [id number]) Physical Therapy Assessment Rehab Potential Rehabilitation Potential Good Evaluation Complexity Number of Personal Factors/Comorbidities 1-2 Number of Body Systems Impaired 1-2 Clinical Presentation at Evaluation Evolving Impairments Impairments Balance,Coordination,Edema, Functional Activities, Functional Mobility,Gait,Pain, Posture,Soft Tissue Mobility, Strength Goals 4 Impairment Inability to descend steps with left foot first Halfway Goal (LTG) Pt will be able to ascend and descend two steps with alternating step pattern and use of rail to improve community ambulation and I. LTG Duration 5 weeks 3 Impairment Lack of HEP Forestry Scientist Goal (LTG) Pt will perform progressive HEP with I including pelvic realignment, flexibility, strengthening and balance exercises to improve pain and quality of life. LTG Duration 5 weeks 2 Impairment Weakness Halfway Goal (LTG) Pt will present with B hip flexion and abduction and knee flexion and extension strength to at least 4+/5 to improve transfers, gait and balance. LTG Duration 5 weeks 1 Impairment LEF score reflecting over 52% dysfunction Halfway Goal (LTG) Pt will present with LEF score reflecting no more than 45% dysfunction to improve quality of life and I. LTG Duration 5 weeks Assessment Summary Assessment Pt is an 83 y/o female presenting with right knee pain. She reports history of S1-2 dysfunction and tight hamstrings. Her previous pain with S1-2 flare-up included pain near ischial tuberosity, hamstring and around hip and groin. This pain is different and is now in her anterior right thigh and knee. Pt is very sensitive to touch and testing and she does not tolerate B passive SLR well, Scour, SEBASTIAN and other hip movement, SI testing. She is also sensitive to palpation of right quads and knee. This limits functional testing. She presents with B weakness in ankles, knees and hips with MMT. She also presents with functional spinal and postural changes. PT reviews chart including recent brain MRI and PT performs quick pupil screen with pen light in dark room. Neither pupils react to light and are large. Pt states she has white coat syndrome with checking BP and so deferred this date. During assessment, PT notes that pt does have some challenges with body awareness and understanding commands for testing and exercises today and this may be a challenge to exercise progression. Pt will benefit from PT to improve myofascial tension, pelvic obliquities, flexibility, strength and balance. Physical Therapy Plan Frequency and Duration Frequency of Treatment 2x/Week Duration of treatment (weeks) 5 Plan of Care Start Date 03/27/24 Plan of Care End Date 05/05/24 Therapeutic Interventions Therapeutic Interventions Balance Training,Canalithic Repositioning,Gait Training, Home Exercise Program,Joint Mobilizations,Manual Therapy, Neuromuscular Re-education, Patient/Caregiver Education, Self-Care/Home Management,Soft Tissue Mobilization,Taping, Therapeutic Activities, Therapeutic Exercises Modalities Cold Pack/Ice Massage,Electric Stimulation,Hot Packs, Ultrasound Next Visit Focus/Plan Next Note Type Treatment Note Next Visit Plan Review pelvic realignment exercises, review what she is already doing at home, iniate manual work
--- NOTE | 2024-03-29 08:51 | PT.OTN ---
Current Diagnoses Strain of unspecified muscle(s) and tendon(s) at lower leg level, right leg, subsequent encounter (03/29/24) History of falling (03/29/24) Physical Therapy Treatment Note PT-OP-A Visit Information Start: 03/21/24 12:12 Freq: Status: Active Protocol: Document 03/29/24 08:13 MB (Rec: 03/29/24 08:51 MB [id number]) Out-Patient Physical Therapy Visit Information Visit Information Visit Type Treatment Note Visit Note [facility] [employer] Progress note by 04/27/24 Visit Start Time 08:13 Visit Stop Time 08:53 Visit Number 2 Number of HOSTEL MANAGER Visits 0 Evaluation Information Evaluation Date 03/27/24 Precautions Precautions Pt is not on blood thinners, pt has white coat syndrome when checking BP PT-OP-B Current Condition Start: 03/21/24 12:12 Freq: Status: Active Protocol: Document 03/27/24 07:26 MB (Rec: 03/27/24 08:14 MB [id number]) Current Condition History of Current Condition Onset Date 02/26/24 Current Complaints Right knee pain History of Current Condition Pt reports a S1-S2 nerve problem and periodically, she has pulled hamstrings and they are always tight. On the 25 of February, she had typically hamstring tightness that moved to inner thigh. She took a step down and then her right knee hurt. The walk-in clinic person stated that she strained her leg. It's been about a month and the knee is not right. She has extremely sore medial knee and lateral knee discomfort on the right. Her right calf is also sore. She tried the stairs again last week and she got sharp pain in the middle of her right knee. She is side stepping down the steps now, leading with LLE. Pt has soreness over the right knee in general. She came to therapy at this clinic at the past but had scheduling problems and could not get in. MRI brain 03/07 negative and US doppler LLE 06/05 negative. Surgery on left saphenous vein 12/09/23 and similar surgery on right leg 5 years ago. Pt denies balance issues. She sleeps well and sleeps on her side without pillow support. Pt denies numbness and tingling in legs. She does leg stretching everyday. Pt states her sacrum has not been acting up and no trouble with bowel and bladder. She had hysterectomy years ago without trouble. Treatment Goals Patient/Caregiver Goals To decrease right knee pain PT-OP-C Subjective Start: 03/21/24 12:12 Freq: Status: Active Protocol: Document 03/29/24 08:13 MB (Rec: 03/29/24 08:51 MB [id number]) OP-PT Subjective Patient Comments Patient Comments Pt states she feels her pelvis and thinks it might be from the pelvic realignment exercises. PT-OP-G Mobility & Gait Start: 03/21/24 12:12 Freq: Status: Active Protocol: Document 03/27/24 07:26 MB (Rec: 03/27/24 08:14 MB [id number]) OP Gait Assessment Comments Gait Comments Gait with shoes donned d/t reported leg length discrepancy with left leg shorter than the right and full-length cork in left shoe: Decreased arm swing, increased Kaitlin angle on the left and left hip mildly weaker than the right as far as Trendelenburg, right leg appears stiffer with gait and and ongoing mild functional leg length difference with left shorter than right with gait, spinal changes and right iliac crest higher than the left. PT-OP-J Posture/Palpation/Skin Start: 03/21/24 12:12 Freq: Status: Active Protocol: Document 03/27/24 07:26 MB (Rec: 03/27/24 08:14 MB [id number]) Posture Evaluation Comments Posture Comments Pt wearing shoes d/t leg length difference and cork full length in left shoe: right shoulder more forward and high compared to the left (pt reports old right rotator cuff injury and limited range) , Dowager's hump and then decreased thoracic kyphosis upper to middle thoracic spine and then stiffness/kyphosis lower thoracic spine, decreased lumbar lordosis, right iliac crest higher than the left, right knee mildly higher than left. PT cannot check SI mobility in supine d/t pt engages abdomen and she has increased soft tisse over anterior pelvis, tender to touch. Pt cannot relax leg for SLR right and helps PT. Left passive SLR grossly 40 deg, very tight. PT-OP-M Strength Start: 03/21/24 12:12 Freq: Status: Active Protocol: Document 03/27/24 07:26 MB (Rec: 03/27/24 08:14 MB [id number]) Hip Strength Hip Manual Muscle Testing Right Flexion (L2) 4+ Good+ Abduction 4+ Good+ Comments Pt does not tolerate passive ER or IR or Scour Left Flexion (L2) 4+ Good+ Abduction 3+ Fair+ Comments Minimal tolerance to PROM in supine Knee Strength Knee Manual Muscle Testing Right Flexion (S2) 4+ Good+ Extension (L3) 4- Good- Left Flexion (S2) 4 Good Extension (L3) 4- Good- Ankle/Foot Strength Ankle and Foot Manual Muscle Testing Right Dorsiflexion (L4) 4 Good Comments Pt cannot perform one heel raise on either leg Left Dorsiflexion (L4) 5 Normal Comments Pt cannot perform one heel raise on either leg Toe Strength Toe Manual Muscle Testing Right Great Toe Extension 4 Good Left Great Toe Extension 5 Normal PT-OP-Q Treatments Start: 03/21/24 12:12 Freq: Status: Active Protocol: Document 03/29/24 08:13 MB (Rec: 03/29/24 08:51 MB [id number]) Therapeutic Exercises Supine Exercises Jose stretch Supine Exercise Name HEP Side bilateral Equipment Used Towel behind opposite knee Reps/Minutes 1 rep each leg Comments 30-45 sec with opp knee to chest Glute max stretch Supine Exercise Name HEP, no picture as she is doing at home already Side bilateral Reps/Minutes Towel behind knee Comments 30-45 sec with knee to chest Adductor stretch in hook lying Supine Exercise Name HEP, no picture as she is doing at home already Side bilateral Reps/Minutes 2-3 reps each leg, 20-30 sec hold Comments Both legs bent, spine flat, abdominal drawing in and pelvic tilt Pelvic realignment exercises Supine Exercise Name HEP Side bilateral Equipment Used Blue ball, towel behind knee last exercise Reps/Minutes 5 reps, 3 sec hold all exercises in order Comments Feet together ball squeeze iso , knee opp ankle iso, thigh press down iso PT-OP-T Assessment and Plan Start: 03/21/24 12:12 Freq: Status: Active Protocol: Document 03/29/24 08:13 MB (Rec: 03/29/24 08:51 MB [id number]) Physical Therapy Assessment Rehab Potential Rehabilitation Potential Good Evaluation Complexity Number of Personal Factors/Comorbidities 1-2 Number of Body Systems Impaired 1-2 Clinical Presentation at Evaluation Evolving Impairments Impairments Balance,Coordination,Edema, Functional Activities, Functional Mobility,Gait,Pain, Posture,Soft Tissue Mobility, Strength Goals 4 Impairment Inability to descend steps with left foot first Director Of Donor Relations Goal (LTG) Pt will be able to ascend and descend two steps with alternating step pattern and use of rail to improve community ambulation and I. LTG Duration 5 weeks 3 Impairment Lack of HEP Director Of Donor Relations Goal (LTG) Pt will perform progressive HEP with I including pelvic realignment, flexibility, strengthening and balance exercises to improve pain and quality of life. LTG Duration 5 weeks 2 Impairment Weakness Longterm Goal (LTG) Pt will present with B hip flexion and abduction and knee flexion and extension strength to at least 4+/5 to improve transfers, gait and balance. LTG Duration 5 weeks 1 Impairment LEF score reflecting over 52% dysfunction Director Of Donor Relations Goal (LTG) Pt will present with LEF score reflecting no more than 45% dysfunction to improve quality of life and I. LTG Duration 5 weeks Assessment Summary Assessment Pt has some challenges with body awareness and following PT cues, especially to protect back with knee to chest for flexibility exercises. Ed pt where she is supposed to be feeling stretches, to slow down and to breathe and perform less reps at home. Physical Therapy Plan Frequency and Duration Frequency of Treatment 2x/Week Duration of treatment (weeks) 5 Plan of Care Start Date 03/27/24 Plan of Care End Date 05/05/24 Therapeutic Interventions Therapeutic Interventions Balance Training,Canalithic Repositioning,Gait Training, Home Exercise Program,Joint Mobilizations,Manual Therapy, Neuromuscular Re-education, Patient/Caregiver Education, Self-Care/Home Management,Soft Tissue Mobilization,Taping, Therapeutic Activities, Therapeutic Exercises Modalities Cold Pack/Ice Massage,Electric Stimulation,Hot Packs, Ultrasound Next Visit Focus/Plan Next Note Type Treatment Note Next Visit Plan HEP review as needed, add gentle hamstring stretch in hook lying with towel beind leg and gentle ankle pump, consider hip rotator stretch, initiate manual work, gentle core, LE strengtening and balance progression
--- NOTE | 2024-04-04 08:56 | PT.OTN ---
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 On the 25 of February, she had typically hamstring tightness that moved to inner thigh. She took a step down and then her right knee hurt. The walk-in clinic person stated that she strained her leg. It's been about a month and the knee is not right. She has extremely sore medial knee and lateral knee discomfort on the right. Her right calf is also sore. She tried the stairs again last week and she got sharp pain in the middle of her right knee. She is side stepping down the steps now, leading with LLE. Pt has soreness over the right knee in general. She came to therapy at this clinic at the past but had scheduling problems and could not get in. MRI brain 03/07 negative and US doppler LLE 06/05 negative. Surgery on left saphenous vein 12/09/23 and similar surgery on right leg 5 years ago. Pt denies balance issues. She sleeps well and sleeps on her side without pillow support. Pt denies numbness and tingling in legs. She does leg stretching everyday. Pt states her sacrum has not been acting up and no trouble with bowel and bladder. She had hysterectomy years ago without trouble. Treatment Goals Patient/Caregiver Goals To decrease right knee pain PT-OP-C Subjective Start: 03/21/24 12:12 Freq: Status: Active Protocol: Document 04/04/24 08:13 MB (Rec: 04/04/24 08:55 MB [id number]) OP-PT Subjective Patient Comments Patient Comments Pt states that things were going well and she decided to stop the Aleve on Wednesday. Wednesday evening, she was bending over tying her shoes and she had a pain in the anterior left quadrant. Pt points to left anterior inferior ribs. Pt also reports right neck stiffness and pain . Pt describes knot pain over right SI joint. She took a walk and had left glute pain. She thinks that Jose stretch with knee to chest is too aggressive. 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 PT-OP-J Posture/Palpation/Skin Start: 03/21/24 12:12 Freq: Status: Active Protocol: Document 03/27/24 07:26 MB (Rec: 03/27/24 08:14 MB [id number]) Posture Evaluation Comments Posture Comments Pt wearing shoes d/t leg length difference and cork full length in left shoe: right shoulder more forward and high compared to the left (pt reports old right rotator cuff injury and limited range) , Dowager's hump and then decreased thoracic kyphosis upper to middle thoracic spine and then stiffness/kyphosis lower thoracic spine, decreased lumbar lordosis, right iliac crest higher than the left, right knee mildly higher than left. PT cannot check SI mobility in supine d/t pt engages abdomen and she has increased soft tisse over anterior pelvis, tender to touch. Pt cannot relax leg for SLR right and helps PT. Left passive SLR grossly 40 deg, very tight. PT-OP-M Strength Start: 03/21/24 12:12 Freq: Status: Active Protocol: Document 03/27/24 07:26 MB (Rec: 03/27/24 08:14 MB [id number]) Hip Strength Hip Manual Muscle Testing Right Flexion (L2) 4+ Good+ Abduction 4+ Good+ Comments Pt does not tolerate passive ER or IR or Scour Left Flexion (L2) 4+ Good+ Abduction 3+ Fair+ Comments Minimal tolerance to PROM in supine Knee Strength Knee Manual Muscle Testing Right Flexion (S2) 4+ Good+ Extension (L3) 4- Good- Left Flexion (S2) 4 Good Extension (L3) 4- Good- Ankle/Foot Strength Ankle and Foot Manual Muscle Testing Right Dorsiflexion (L4) 4 Good Comments Pt cannot perform one heel raise on either leg Left Dorsiflexion (L4) 5 Normal Comments Pt cannot perform one heel raise on either leg Toe Strength Toe Manual Muscle Testing Right Great Toe Extension 4 Good Left Great Toe Extension 5 Normal PT-OP-Q Treatments Start: 03/21/24 12:12 Freq: Status: Active Protocol: Document 04/04/24 08:13 MB (Rec: 04/04/24 08:55 MB [id number]) Therapeutic Exercises Supine Exercises Hamstring MWM Supine Exercise Name HEP Side bilateral Equipment Used Towel behind thigh Reps/Minutes Several attempts to hold leg up Comments Pt bending and straightening knee with hip up being held by towel roll Jose stretch Supine Exercise Name HEP Side bilateral Equipment Used *Changed to opp knee bent, pelvic tilt, tummy tight Reps/Minutes 1 rep each leg Comments 30-45 sec Sitting Exercises Hamstring stretch Sitting Exercise Name Pt demos what she is doing at home Comments Legs straight and ankle DF and also calf streches with knees bent Manual Therapy Treatment Consent Patient gave verbal consent for manual Yes treatment Other Other Manual Treatments Pt in side lying: pillow under head and between legs: STM B thoracolumbar paraspinals, QL, TFL, hip rotators and vastus lateralis and pt with verbalizations with min to mod level manual work, increased tenderness PT-OP-T Assessment and Plan Start: 03/21/24 12:12 Freq: Status: Active Protocol: Document 04/04/24 08:13 MB (Rec: 04/04/24 08:55 MB [id number]) Physical Therapy Assessment Rehab Potential Rehabilitation Potential Good Evaluation Complexity Number of Personal Factors/Comorbidities 1-2 Number of Body Systems Impaired 1-2 Clinical Presentation at Evaluation Evolving Impairments Impairments Balance,Coordination,Edema, Functional Activities, Functional Mobility,Gait,Pain, Posture,Soft Tissue Mobility, Strength Goals 4 Impairment Inability to descend steps with left foot first Bodybuilder Goal (LTG) Pt will be able to ascend and descend two steps with alternating step pattern and use of rail to improve community ambulation and I. LTG Duration 5 weeks 3 Impairment Lack of HEP Bodybuilder Goal (LTG) Pt will perform progressive HEP with I including pelvic realignment, flexibility, strengthening and balance exercises to improve pain and quality of life. LTG Duration 5 weeks 2 Impairment Weakness Skilled Nursing Goal (LTG) Pt will present with B hip flexion and abduction and knee flexion and extension strength to at least 4+/5 to improve transfers, gait and balance. LTG Duration 5 weeks 1 Impairment LEF score reflecting over 52% dysfunction Skilled Nursing Goal (LTG) Pt will present with LEF score reflecting no more than 45% dysfunction to improve quality of life and I. LTG Duration 5 weeks Assessment Summary Assessment Modified Jose stretch today and added gentle hamstring MWM /flossing. Pt with increased sensitivity to gentle manual work. Con't to monitor. Physical Therapy Plan Frequency and Duration Frequency of Treatment 2x/Week Duration of treatment (weeks) 5 Plan of Care Start Date 03/27/24 Plan of Care End Date 05/05/24 Therapeutic Interventions Therapeutic Interventions Balance Training,Canalithic Repositioning,Gait Training, Home Exercise Program,Joint Mobilizations,Manual Therapy, Neuromuscular Re-education, Patient/Caregiver Education, Self-Care/Home Management,Soft Tissue Mobilization,Taping, Therapeutic Activities, Therapeutic Exercises Modalities Cold Pack/Ice Massage,Electric Stimulation,Hot Packs, Ultrasound Next Visit Focus/Plan Next Note Type Treatment Note Next Visit Plan Review HEP if needed, consider open book, hip rotator stretch, ongoing manual work, gentle core, LE strengtening and balance progression TrP manual work
--- NOTE | 2024-04-06 16:40 | PT.OTN ---
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 On the 25 of February, she had typically hamstring tightness that moved to inner thigh. She took a step down and then her right knee hurt. The walk-in clinic person stated that she strained her leg. It's been about a month and the knee is not right. She has extremely sore medial knee and lateral knee discomfort on the right. Her right calf is also sore. She tried the stairs again last week and she got sharp pain in the middle of her right knee. She is side stepping down the steps now, leading with LLE. Pt has soreness over the right knee in general. She came to therapy at this clinic at the past but had scheduling problems and could not get in. MRI brain 03/07 negative and US doppler LLE 06/05 negative. Surgery on left saphenous vein 12/09/23 and similar surgery on right leg 5 years ago. Pt denies balance issues. She sleeps well and sleeps on her side without pillow support. Pt denies numbness and tingling in legs. She does leg stretching everyday. Pt states her sacrum has not been acting up and no trouble with bowel and bladder. She had hysterectomy years ago without trouble. Treatment Goals Patient/Caregiver Goals To decrease right knee pain PT-OP-C Subjective Start: 03/21/24 12:12 Freq: Status: Active Protocol: Document 04/06/24 13:08 SW (Rec: 04/06/24 13:50 SW [id number]) OP-PT Subjective Patient Comments Patient Comments Pt reports felt really well after massage last session. Currently no pain. 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 PT-OP-J Posture/Palpation/Skin Start: 03/21/24 12:12 Freq: Status: Active Protocol: Document 03/27/24 07:26 MB (Rec: 03/27/24 08:14 MB [id number]) Posture Evaluation Comments Posture Comments Pt wearing shoes d/t leg length difference and cork full length in left shoe: right shoulder more forward and high compared to the left (pt reports old right rotator cuff injury and limited range) , Dowager's hump and then decreased thoracic kyphosis upper to middle thoracic spine and then stiffness/kyphosis lower thoracic spine, decreased lumbar lordosis, right iliac crest higher than the left, right knee mildly higher than left. PT cannot check SI mobility in supine d/t pt engages abdomen and she has increased soft tisse over anterior pelvis, tender to touch. Pt cannot relax leg for SLR right and helps PT. Left passive SLR grossly 40 deg, very tight. PT-OP-M Strength Start: 03/21/24 12:12 Freq: Status: Active Protocol: Document 03/27/24 07:26 MB (Rec: 03/27/24 08:14 MB [id number]) Hip Strength Hip Manual Muscle Testing Right Flexion (L2) 4+ Good+ Abduction 4+ Good+ Comments Pt does not tolerate passive ER or IR or Scour Left Flexion (L2) 4+ Good+ Abduction 3+ Fair+ Comments Minimal tolerance to PROM in supine Knee Strength Knee Manual Muscle Testing Right Flexion (S2) 4+ Good+ Extension (L3) 4- Good- Left Flexion (S2) 4 Good Extension (L3) 4- Good- Ankle/Foot Strength Ankle and Foot Manual Muscle Testing Right Dorsiflexion (L4) 4 Good Comments Pt cannot perform one heel raise on either leg Left Dorsiflexion (L4) 5 Normal Comments Pt cannot perform one heel raise on either leg Toe Strength Toe Manual Muscle Testing Right Great Toe Extension 4 Good Left Great Toe Extension 5 Normal PT-OP-Q Treatments Start: 03/21/24 12:12 Freq: Status: Active Protocol: Document 04/06/24 13:08 (Rec: 04/06/24 13:50 [id number]) Therapeutic Exercises Supine Exercises Open Book Supine Exercise Name Open book Hip ER stretch Supine Exercise Name ER stretch Glute max stretch Supine Exercise Name HEP, no picture as she is doing at home already Side bilateral Reps/Minutes Towel behind knee Comments 30-45 sec with knee to chest Pelvic realignment exercises Supine Exercise Name HEP reviewed Side bilateral Equipment Used Blue ball, towel behind knee last exercise Reps/Minutes 5 reps, 3 sec hold all exercises in order Comments Feet together ball squeeze iso , knee opp ankle iso, thigh press down iso PT-OP-T Assessment and Plan Start: 03/21/24 12:12 Freq: Status: Active Protocol: Document 04/06/24 13:08 (Rec: 04/06/24 16:38 [id number]) Physical Therapy Assessment Goals 4 Impairment Inability to descend steps with left foot first Production Hardener Goal (LTG) Pt will be able to ascend and descend two steps with alternating step pattern and use of rail to improve community ambulation and I. LTG Duration 5 weeks 3 Impairment Lack of HEP Usp Goal (LTG) Pt will perform progressive HEP with I including pelvic realignment, flexibility, strengthening and balance exercises to improve pain and quality of life. LTG Duration 5 weeks 2 Impairment Weakness Production Hardener Goal (LTG) Pt will present with B hip flexion and abduction and knee flexion and extension strength to at least 4+/5 to improve transfers, gait and balance. LTG Duration 5 weeks 1 Impairment LEF score reflecting over 52% dysfunction Usp Goal (LTG) Pt will present with LEF score reflecting no more than 45% dysfunction to improve quality of life and I. LTG Duration 5 weeks Assessment Summary Assessment Pt reports no pain today. Session focused on reviewing HEP exercises for carryover, cues required for correct execution. Added open book and Hip rotator stretch to HEP today. Monitored for pt tolerance to open book with RUE this session d/t previous shoulder injury many years ago , pt tolerated well, instructed pt to continue to monitor tolerance at home and discontinue if it causes any discomfort. Pt had a good response to manual therapy last session, pt is inquiring to find a massage therapist for monthly visits. Physical Therapy Plan Frequency and Duration Frequency of Treatment 2x/Week Duration of treatment (weeks) 5 Plan of Care Start Date 03/27/24 Plan of Care End Date 05/05/24 Therapeutic Interventions Therapeutic Interventions Balance Training,Canalithic Repositioning,Gait Training, Home Exercise Program,Joint Mobilizations,Manual Therapy, Neuromuscular Re-education, Patient/Caregiver Education, Self-Care/Home Management,Soft Tissue Mobilization,Taping, Therapeutic Activities, Therapeutic Exercises Modalities Cold Pack/Ice Massage,Electric Stimulation,Hot Packs, Ultrasound Next Visit Focus/Plan Next Note Type Treatment Note Next Visit Plan Review HEP if needed, consider open book, hip rotator stretch, ongoing manual work, gentle core, LE strengtening and balance progression TrP manual work
--- NOTE | 2024-04-11 17:15 | PT.OTN ---
Current Diagnoses Strain of unspecified muscle(s) and tendon(s) at lower leg level, right leg, subsequent encounter (04/11/24) History of falling (04/11/24) Physical Therapy Treatment Note PT-OP-A Visit Information Start: 03/21/24 12:12 Freq: Status: Active Protocol: Document 04/11/24 13:09 SW (Rec: 04/11/24 17:14 SW [id number]) Out-Patient Physical Therapy Visit Information Visit Information Visit Type Treatment Note Visit Note [facility] [employer] Progress note by 04/27/24 Visit Start Time 13:00 Visit Stop Time 13:40 Visit Number 5 Number of MARKER ASSEMBLER Visits 2 Precautions Precautions Pt is not on blood thinners, pt has white coat syndrome when checking BP PT-OP-B Current Condition Start: 03/21/24 12:12 Freq: Status: Active Protocol: Document 03/27/24 07:26 MB (Rec: 03/27/24 08:14 MB [id number]) Current Condition History of Current Condition Onset Date 02/26/24 Current Complaints Right knee pain History of Current Condition Pt reports a S1-S2 nerve problem and periodically, she has pulled hamstrings and they are always tight. On the 25 of February, she had typically hamstring tightness that moved to inner thigh. She took a step down and then her right knee hurt. The walk-in clinic person stated that she strained her leg. It's been about a month and the knee is not right. She has extremely sore medial knee and lateral knee discomfort on the right. Her right calf is also sore. She tried the stairs again last week and she got sharp pain in the middle of her right knee. She is side stepping down the steps now, leading with LLE. Pt has soreness over the right knee in general. She came to therapy at this clinic at the past but had scheduling problems and could not get in. MRI brain 03/07 negative and US doppler LLE 06/05 negative. Surgery on left saphenous vein 12/09/23 and similar surgery on right leg 5 years ago. Pt denies balance issues. She sleeps well and sleeps on her side without pillow support. Pt denies numbness and tingling in legs. She does leg stretching everyday. Pt states her sacrum has not been acting up and no trouble with bowel and bladder. She had hysterectomy years ago without trouble. Treatment Goals Patient/Caregiver Goals To decrease right knee pain PT-OP-C Subjective Start: 03/21/24 12:12 Freq: Status: Active Protocol: Document 04/11/24 13:09 SW (Rec: 04/11/24 17:14 SW [id number]) OP-PT Subjective Patient Comments Patient Comments Pt reports pain 5-6 in rib, anterior wrapped around posterior. Knee is feeling much better, feeling like my old self. Down and up stairs better. Pt reports pull on left side of quad when driving going from gas to brake. 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 PT-OP-J Posture/Palpation/Skin Start: 03/21/24 12:12 Freq: Status: Active Protocol: Document 03/27/24 07:26 MB (Rec: 03/27/24 08:14 MB [id number]) Posture Evaluation Comments Posture Comments Pt wearing shoes d/t leg length difference and cork full length in left shoe: right shoulder more forward and high compared to the left (pt reports old right rotator cuff injury and limited range) , Dowager's hump and then decreased thoracic kyphosis upper to middle thoracic spine and then stiffness/kyphosis lower thoracic spine, decreased lumbar lordosis, right iliac crest higher than the left, right knee mildly higher than left. PT cannot check SI mobility in supine d/t pt engages abdomen and she has increased soft tisse over anterior pelvis, tender to touch. Pt cannot relax leg for SLR right and helps PT. Left passive SLR grossly 40 deg, very tight. PT-OP-M Strength Start: 03/21/24 12:12 Freq: Status: Active Protocol: Document 03/27/24 07:26 MB (Rec: 03/27/24 08:14 MB [id number]) Hip Strength Hip Manual Muscle Testing Right Flexion (L2) 4+ Good+ Abduction 4+ Good+ Comments Pt does not tolerate passive ER or IR or Scour Left Flexion (L2) 4+ Good+ Abduction 3+ Fair+ Comments Minimal tolerance to PROM in supine Knee Strength Knee Manual Muscle Testing Right Flexion (S2) 4+ Good+ Extension (L3) 4- Good- Left Flexion (S2) 4 Good Extension (L3) 4- Good- Ankle/Foot Strength Ankle and Foot Manual Muscle Testing Right Dorsiflexion (L4) 4 Good Comments Pt cannot perform one heel raise on either leg Left Dorsiflexion (L4) 5 Normal Comments Pt cannot perform one heel raise on either leg Toe Strength Toe Manual Muscle Testing Right Great Toe Extension 4 Good Left Great Toe Extension 5 Normal PT-OP-Q Treatments Start: 03/21/24 12:12 Freq: Status: Active Protocol: Document 04/11/24 13:09 SW (Rec: 04/11/24 17:14 SW [id number]) Therapeutic Exercises Supine Exercises Hip Abd Supine Exercise Name Hip abd (HEP) Equipment Used Lvl 1 band Reps/Minutes Iso hold 2x30, x10 Comments pain free Core Supine Exercise Name 1.Abdominal bracing 2.pelvic tilt 3.knee rocking Comments cues for core activation Jose stretch Supine Exercise Name HEP Side bilateral Equipment Used *Changed to opp knee bent, pelvic tilt, tummy tight Reps/Minutes 1 rep each leg Comments 30-45 sec Glute max stretch Supine Exercise Name HEP review Side bilateral Reps/Minutes Towel behind knee Comments 30-45 sec with knee to chest Adductor stretch in hook lying Supine Exercise Name verbal review Side bilateral Pelvic realignment exercises Supine Exercise Name Verbal review Sitting Exercises Hamstring stretch Sitting Exercise Name Seated HS stretch today vs supine, d/t pain holding towel Side bilateral Manual Therapy Treatment Consent Patient gave verbal consent for manual Yes treatment Soft Tissue Mobilization STM Body Location thoracolumbar paraspinals, QL, TFL, hip rotators, quads Mobilization Type Myofascial Release,Rolling, Sustained Pressure,Trigger Point Release Intensity/Depth Moderate Body Position Sidelying Comments Pt good feedback, feels good , pillow between knees Other Other Manual Treatments Self STM: educated, demonstrated, and pt performed manual STM w/tennis ball at wall, good feedback, instructed pt to use ball in sock or nylon to prevent ball falling to floor PT-OP-T Assessment and Plan Start: 03/21/24 12:12 Freq: Status: Active Protocol: Document 04/11/24 13:09 (Rec: 04/11/24 17:14 [id number]) Physical Therapy Assessment Goals 4 Impairment Inability to descend steps with left foot first [employer] Goal (LTG) Pt will be able to ascend and descend two steps with alternating step pattern and use of rail to improve community ambulation and I. LTG Duration 5 weeks 3 Impairment Lack of HEP Fpc Goal (LTG) Pt will perform progressive HEP with I including pelvic realignment, flexibility, strengthening and balance exercises to improve pain and quality of life. LTG Duration 5 weeks 2 Impairment Weakness [employer] Goal (LTG) Pt will present with B hip flexion and abduction and knee flexion and extension strength to at least 4+/5 to improve transfers, gait and balance. LTG Duration 5 weeks 1 Impairment LEF score reflecting over 52% dysfunction [employer] Goal (LTG) Pt will present with LEF score reflecting no more than 45% dysfunction to improve quality of life and I. LTG Duration 5 weeks Assessment Summary Assessment Session focused on manual therapy today to decrease pain , tension, and improve mobility, pt tolerated well with reported decreased pain and felt better post with palpable decreased tension, increased pliability in tissues. Pt reports knee is feeling better with decreased pain and reports able to ascend/descend stairs with less pain. Initiated hip strength today in supine, good tolerance, issued HEP HO. Reviewed HEP today and discontinued some exercises with towel d/t increased pain in L thoracic/shoulder from holding towel. Plan to continue gentle core progression as able, and focus on LE strength and balance next session as able Physical Therapy Plan Frequency and Duration Frequency of Treatment 2x/Week Duration of treatment (weeks) 5 Plan of Care Start Date 03/27/24 Plan of Care End Date 05/05/24 Therapeutic Interventions Therapeutic Interventions Balance Training,Canalithic Repositioning,Gait Training, Home Exercise Program,Joint Mobilizations,Manual Therapy, Neuromuscular Re-education, Patient/Caregiver Education, Self-Care/Home Management,Soft Tissue Mobilization,Taping, Therapeutic Activities, Therapeutic Exercises Modalities Cold Pack/Ice Massage,Electric Stimulation,Hot Packs, Ultrasound Next Visit Focus/Plan Next Note Type Treatment Note Next Visit Plan Review HEP if needed, consider open book, hip rotator stretch, ongoing manual work, gentle core, LE strengtening and balance progression TrP manual work
--- NOTE | 2024-04-13 16:50 | PT.OTN ---
Current Diagnoses Strain of unspecified muscle(s) and tendon(s) at lower leg level, right leg, subsequent encounter (04/13/24) History of falling (04/13/24) Physical Therapy Treatment Note PT-OP-A Visit Information Start: 03/21/24 12:12 Freq: Status: Active Protocol: Document 04/13/24 13:49 SW (Rec: 04/13/24 14:38 SW [id number]) Out-Patient Physical Therapy Visit Information Visit Information Visit Type Treatment Note Visit Note [facility] [employer] Progress note by 04/27/24 Visit Start Time 13:45 Visit Stop Time 14:25 Visit Number 6 Number of INTERPRETIVE NATURALIST Visits 3 Precautions Precautions Pt is not on blood thinners, pt has white coat syndrome when checking BP PT-OP-B Current Condition Start: 03/21/24 12:12 Freq: Status: Active Protocol: Document 03/27/24 07:26 MB (Rec: 03/27/24 08:14 MB [id number]) Current Condition History of Current Condition Onset Date 02/26/24 Current Complaints Right knee pain History of Current Condition Pt reports a S1-S2 nerve problem and periodically, she has pulled hamstrings and they are always tight. On the 25 of February, she had typically hamstring tightness that moved to inner thigh. She took a step down and then her right knee hurt. The walk-in clinic person stated that she strained her leg. It's been about a month and the knee is not right. She has extremely sore medial knee and lateral knee discomfort on the right. Her right calf is also sore. She tried the stairs again last week and she got sharp pain in the middle of her right knee. She is side stepping down the steps now, leading with LLE. Pt has soreness over the right knee in general. She came to therapy at this clinic at the past but had scheduling problems and could not get in. MRI brain 03/07 negative and US doppler LLE 06/05 negative. Surgery on left saphenous vein 12/09/23 and similar surgery on right leg 5 years ago. Pt denies balance issues. She sleeps well and sleeps on her side without pillow support. Pt denies numbness and tingling in legs. She does leg stretching everyday. Pt states her sacrum has not been acting up and no trouble with bowel and bladder. She had hysterectomy years ago without trouble. Treatment Goals Patient/Caregiver Goals To decrease right knee pain PT-OP-C Subjective Start: 03/21/24 12:12 Freq: Status: Active Protocol: Document 04/13/24 13:49 SW (Rec: 04/13/24 14:38 SW [id number]) OP-PT Subjective Patient Comments Patient Comments Pt reports sore, would not say it is pain. Reports felt well after manual therapy and PT, then later in the day the Left paraspinals was in pain again , felt better today. Pt reports knee is feeling better , can still feel it in medial knee, though able to stand without pain. 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 PT-OP-J Posture/Palpation/Skin Start: 03/21/24 12:12 Freq: Status: Active Protocol: Document 03/27/24 07:26 MB (Rec: 03/27/24 08:14 MB [id number]) Posture Evaluation Comments Posture Comments Pt wearing shoes d/t leg length difference and cork full length in left shoe: right shoulder more forward and high compared to the left (pt reports old right rotator cuff injury and limited range) , Dowager's hump and then decreased thoracic kyphosis upper to middle thoracic spine and then stiffness/kyphosis lower thoracic spine, decreased lumbar lordosis, right iliac crest higher than the left, right knee mildly higher than left. PT cannot check SI mobility in supine d/t pt engages abdomen and she has increased soft tisse over anterior pelvis, tender to touch. Pt cannot relax leg for SLR right and helps PT. Left passive SLR grossly 40 deg, very tight. PT-OP-M Strength Start: 03/21/24 12:12 Freq: Status: Active Protocol: Document 03/27/24 07:26 MB (Rec: 03/27/24 08:14 MB [id number]) Hip Strength Hip Manual Muscle Testing Right Flexion (L2) 4+ Good+ Abduction 4+ Good+ Comments Pt does not tolerate passive ER or IR or Scour Left Flexion (L2) 4+ Good+ Abduction 3+ Fair+ Comments Minimal tolerance to PROM in supine Knee Strength Knee Manual Muscle Testing Right Flexion (S2) 4+ Good+ Extension (L3) 4- Good- Left Flexion (S2) 4 Good Extension (L3) 4- Good- Ankle/Foot Strength Ankle and Foot Manual Muscle Testing Right Dorsiflexion (L4) 4 Good Comments Pt cannot perform one heel raise on either leg Left Dorsiflexion (L4) 5 Normal Comments Pt cannot perform one heel raise on either leg Toe Strength Toe Manual Muscle Testing Right Great Toe Extension 4 Good Left Great Toe Extension 5 Normal PT-OP-Q Treatments Start: 03/21/24 12:12 Freq: Status: Active Protocol: Document 04/13/24 13:49 SW (Rec: 04/13/24 16:42 SW [id number]) Therapeutic Exercises Supine Exercises Core Supine Exercise Name verbal review Glute max stretch Supine Exercise Name verbal review Pelvic realignment exercises Supine Exercise Name Verbal review Sitting Exercises Anti rotation Sitting Exercise Name seated core Knee Strength Sitting Exercise Name Knee strengtheners, flex/ext ( issued HEP HO) Side bilateral Resistance AROM Reps/Minutes 2 x 5 ea Comments quick to fatigue, cues for pause at top, eccentric control Clams Sitting Exercise Name Clams for hip strength (issued HEP HO) Side bilateral Resistance Lvl 1 band Reps/Minutes 2x10 Comments cues for slow controlled movement Hamstring stretch Sitting Exercise Name Reviewed (issued HEP HO) Side bilateral Comments cued for neutral spinal alignment, hip hinge Standing Exercises Hip Ext Standing Exercise Name Hip ext (issued HEP HO) Side bilateral Resistance Trialed Lvl 1 TB> No resistance Equipment Used Plinth UE support for balance Reps/Minutes x10 Comments cues for form, pain free, quick to fatigue Neuro Re-Education Treatment Balance Activities Tandem Details Partial Tandem>Tandem stance Surface stable Equipment @ plinth for UE support prn Comments Corner unavailable, INTERPRETIVE NATURALIST guarding close SBA, gait belt donned NBOS Details NBOS Surface stable Equipment @ plinth for UE support prn Comments EO,EC, head turns PT-OP-T Assessment and Plan Start: 03/21/24 12:12 Freq: Status: Active Protocol: Document 04/13/24 13:49 (Rec: 04/13/24 14:38 [id number]) Physical Therapy Assessment Goals 4 Impairment Inability to descend steps with left foot first Snf Goal (LTG) Pt will be able to ascend and descend two steps with alternating step pattern and use of rail to improve community ambulation and I. LTG Duration 5 weeks 3 Impairment Lack of HEP Snf Goal (LTG) Pt will perform progressive HEP with I including pelvic realignment, flexibility, strengthening and balance exercises to improve pain and quality of life. LTG Duration 5 weeks 2 Impairment Weakness Cremator Goal (LTG) Pt will present with B hip flexion and abduction and knee flexion and extension strength to at least 4+/5 to improve transfers, gait and balance. LTG Duration 5 weeks 1 Impairment LEF score reflecting over 52% dysfunction Cremator Goal (LTG) Pt will present with LEF score reflecting no more than 45% dysfunction to improve quality of life and I. LTG Duration 5 weeks Assessment Summary Assessment Pt felt less pain this session in posterior thoracic area today, today's session focused on ther ex and balance. Inititited knee strengthening exercises, pt quick to fatigue , denied pain, only able to tolerate low reps today. Plan to continue balance and strength progression next session as able, review corner balance and issue HEP HO for balance carryover at home. Physical Therapy Plan Frequency and Duration Frequency of Treatment 2x/Week Duration of treatment (weeks) 5 Plan of Care Start Date 03/27/24 Plan of Care End Date 05/05/24 Therapeutic Interventions Therapeutic Interventions Balance Training,Canalithic Repositioning,Gait Training, Home Exercise Program,Joint Mobilizations,Manual Therapy, Neuromuscular Re-education, Patient/Caregiver Education, Self-Care/Home Management,Soft Tissue Mobilization,Taping, Therapeutic Activities, Therapeutic Exercises Modalities Cold Pack/Ice Massage,Electric Stimulation,Hot Packs, Ultrasound Next Visit Focus/Plan Next Note Type Treatment Note Next Visit Plan Review HEP if needed, consider open book, hip rotator stretch, ongoing manual work, gentle core, LE strengtening and balance progression TrP manual work
--- NOTE | 2024-04-17 09:05 | PT.OTN ---
Current Diagnoses Strain of unspecified muscle(s) and tendon(s) at lower leg level, right leg, subsequent encounter (04/17/24) History of falling (04/17/24) Physical Therapy Treatment Note PT-OP-A Visit Information Start: 03/21/24 12:12 Freq: Status: Active Protocol: Document 04/17/24 08:16 MB (Rec: 04/17/24 09:05 MB [id number]) Out-Patient Physical Therapy Visit Information Visit Information Visit Type Treatment Note Visit Note [employer] Progress note by 04/27/24 Visit Start Time 08:16 Visit Stop Time 08:56 Visit Number 7 Number of BAR HELPER Visits 0 Precautions Precautions Pt is not on blood thinners, pt has white coat syndrome when checking BP PT-OP-B Current Condition Start: 03/21/24 12:12 Freq: Status: Active Protocol: Document 03/27/24 07:26 MB (Rec: 03/27/24 08:14 MB [id number]) Current Condition History of Current Condition Onset Date 02/26/24 Current Complaints Right knee pain History of Current Condition Pt reports a S1-S2 nerve problem and periodically, she has pulled hamstrings and they are always tight. On the 25 of February, she had typically hamstring tightness that moved to inner thigh. She took a step down and then her right knee hurt. The walk-in clinic person stated that she strained her leg. It's been about a month and the knee is not right. She has extremely sore medial knee and lateral knee discomfort on the right. Her right calf is also sore. She tried the stairs again last week and she got sharp pain in the middle of her right knee. She is side stepping down the steps now, leading with LLE. Pt has soreness over the right knee in general. She came to therapy at this clinic at the past but had scheduling problems and could not get in. MRI brain 03/07 negative and US doppler LLE 06/05 negative. Surgery on left saphenous vein 12/09/23 and similar surgery on right leg 5 years ago. Pt denies balance issues. She sleeps well and sleeps on her side without pillow support. Pt denies numbness and tingling in legs. She does leg stretching everyday. Pt states her sacrum has not been acting up and no trouble with bowel and bladder. She had hysterectomy years ago without trouble. Treatment Goals Patient/Caregiver Goals To decrease right knee pain PT-OP-C Subjective Start: 03/21/24 12:12 Freq: Status: Active Protocol: Document 04/17/24 08:16 MB (Rec: 04/17/24 09:05 MB [id number]) OP-PT Subjective Patient Comments Patient Comments Pt is using tennis ball for massage for hip and shoulder and it is good and she can feel it. 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 PT-OP-J Posture/Palpation/Skin Start: 03/21/24 12:12 Freq: Status: Active Protocol: Document 03/27/24 07:26 MB (Rec: 03/27/24 08:14 MB [id number]) Posture Evaluation Comments Posture Comments Pt wearing shoes d/t leg length difference and cork full length in left shoe: right shoulder more forward and high compared to the left (pt reports old right rotator cuff injury and limited range) , Dowager's hump and then decreased thoracic kyphosis upper to middle thoracic spine and then stiffness/kyphosis lower thoracic spine, decreased lumbar lordosis, right iliac crest higher than the left, right knee mildly higher than left. PT cannot check SI mobility in supine d/t pt engages abdomen and she has increased soft tisse over anterior pelvis, tender to touch. Pt cannot relax leg for SLR right and helps PT. Left passive SLR grossly 40 deg, very tight. PT-OP-M Strength Start: 03/21/24 12:12 Freq: Status: Active Protocol: Document 03/27/24 07:26 MB (Rec: 03/27/24 08:14 MB [id number]) Hip Strength Hip Manual Muscle Testing Right Flexion (L2) 4+ Good+ Abduction 4+ Good+ Comments Pt does not tolerate passive ER or IR or Scour Left Flexion (L2) 4+ Good+ Abduction 3+ Fair+ Comments Minimal tolerance to PROM in supine Knee Strength Knee Manual Muscle Testing Right Flexion (S2) 4+ Good+ Extension (L3) 4- Good- Left Flexion (S2) 4 Good Extension (L3) 4- Good- Ankle/Foot Strength Ankle and Foot Manual Muscle Testing Right Dorsiflexion (L4) 4 Good Comments Pt cannot perform one heel raise on either leg Left Dorsiflexion (L4) 5 Normal Comments Pt cannot perform one heel raise on either leg Toe Strength Toe Manual Muscle Testing Right Great Toe Extension 4 Good Left Great Toe Extension 5 Normal PT-OP-Q Treatments Start: 03/21/24 12:12 Freq: Status: Active Protocol: Document 04/17/24 08:16 MB (Rec: 04/17/24 09:05 [id number]) Cardio Equipment Bicycle (Upright) Duration (Minutes) 10 Resistance 4-5 Seat Position 5 Therapeutic Exercises Supine Exercises Hip Abd Supine Exercise Name Hook lying clam (HEP) Equipment Used Level 1 band with knot around it Comments Many reps and education where to feel it and pt has a lot of trouble feelin Jose stretch Supine Exercise Name HEP and opp knee is bent Side bilateral Reps/Minutes 1 rep each leg Comments 30-45 sec Glute max stretch Supine Exercise Name Practiced from HEP Side bilateral Equipment Used No towel Reps/Minutes 1 rep Comments 30-45 sec with knee to chest Adductor stretch in hook lying Supine Exercise Name HEP, written on handout Side bilateral Reps/Minutes 1 rep each leg Comments 30-45 sec each leg Pelvic realignment exercises Supine Exercise Name Performs for HEP review Side bilateral Equipment Used Blue ball, no towel Reps/Minutes 5 reps, 3 sec hold Comments Feet together ball squeeze iso , knee opp ankle iso, thigh press down iso Sitting Exercises Hamstring stretch Sitting Exercise Name Pt demos B legs like she was doing previous to this PT course Side bilateral Comments Feet out, both legs today and toes up PT-OP-T Assessment and Plan Start: 03/21/24 12:12 Freq: Status: Active Protocol: Document 04/17/24 08:16 MB (Rec: 04/17/24 09:05 SIMI [id number]) Physical Therapy Assessment Goals 4 Impairment Inability to descend steps with left foot first Shelter Goal (LTG) Pt will be able to ascend and descend two steps with alternating step pattern and use of rail to improve community ambulation and I. LTG Duration 5 weeks 3 Impairment Lack of HEP Shelter Goal (LTG) Pt will perform progressive HEP with I including pelvic realignment, flexibility, strengthening and balance exercises to improve pain and quality of life. LTG Duration 5 weeks 2 Impairment Weakness Shelter Goal (LTG) Pt will present with B hip flexion and abduction and knee flexion and extension strength to at least 4+/5 to improve transfers, gait and balance. LTG Duration 5 weeks 1 Impairment LEF score reflecting over 52% dysfunction Shelter Goal (LTG) Pt will present with LEF score reflecting no more than 45% dysfunction to improve quality of life and I. LTG Duration 5 weeks Assessment Summary Assessment HEP review today for correct performance and added upright bike today. Pt has a lot of trouble understanding hook lying clam and she does not like the band and so d/cd this exercise. Exercises are confusing as her photos do not match watch she was taught and so d/cd many exercises today. Will check in with BAR HELPER as schedule allows. Please make sure all handouts match what is taught to patient. Physical Therapy Plan Frequency and Duration Frequency of Treatment 2x/Week Duration of treatment (weeks) 5 Plan of Care Start Date 03/27/24 Plan of Care End Date 05/05/24 Therapeutic Interventions Therapeutic Interventions Balance Training,Canalithic Repositioning,Gait Training, Home Exercise Program,Joint Mobilizations,Manual Therapy, Neuromuscular Re-education, Patient/Caregiver Education, Self-Care/Home Management,Soft Tissue Mobilization,Taping, Therapeutic Activities, Therapeutic Exercises Modalities Cold Pack/Ice Massage,Electric Stimulation,Hot Packs, Ultrasound Next Visit Focus/Plan Next Note Type Treatment Note Next Visit Plan Consider upright stationary bike to begin. Review exercises and progress balance. Please make sure all handouts match what is taught the patient.
--- NOTE | 2024-04-17 09:22 | PT.OTN ---
Current Diagnoses Strain of unspecified muscle(s) and tendon(s) at lower leg level, right leg, subsequent encounter (04/17/24) History of falling (04/17/24) Physical Therapy Treatment Note PT-OP-A Visit Information Start: 03/21/24 12:12 Freq: Status: Active Protocol: Document 04/17/24 08:16 MB (Rec: 04/17/24 09:05 MB [id number]) Out-Patient Physical Therapy Visit Information Visit Information Visit Type Treatment Note Visit Note [facility] [employer] Progress note by 04/27/24 Visit Start Time 08:16 Visit Stop Time 08:56 Visit Number 7 Number of SENIOR WEB ANALYST Visits 0 Precautions Precautions Pt is not on blood thinners, pt has white coat syndrome when checking BP PT-OP-B Current Condition Start: 03/21/24 12:12 Freq: Status: Active Protocol: Document 03/27/24 07:26 MB (Rec: 03/27/24 08:14 MB [id number]) Current Condition History of Current Condition Onset Date 02/26/24 Current Complaints Right knee pain History of Current Condition Pt reports a S1-S2 nerve problem and periodically, she has pulled hamstrings and they are always tight. On the 25 of February, she had typically hamstring tightness that moved to inner thigh. She took a step down and then her right knee hurt. The walk-in clinic person stated that she strained her leg. It's been about a month and the knee is not right. She has extremely sore medial knee and lateral knee discomfort on the right. Her right calf is also sore. She tried the stairs again last week and she got sharp pain in the middle of her right knee. She is side stepping down the steps now, leading with LLE. Pt has soreness over the right knee in general. She came to therapy at this clinic at the past but had scheduling problems and could not get in. MRI brain 03/07 negative and US doppler LLE 06/05 negative. Surgery on left saphenous vein 12/09/23 and similar surgery on right leg 5 years ago. Pt denies balance issues. She sleeps well and sleeps on her side without pillow support. Pt denies numbness and tingling in legs. She does leg stretching everyday. Pt states her sacrum has not been acting up and no trouble with bowel and bladder. She had hysterectomy years ago without trouble. Treatment Goals Patient/Caregiver Goals To decrease right knee pain PT-OP-C Subjective Start: 03/21/24 12:12 Freq: Status: Active Protocol: Document 04/17/24 08:16 MB (Rec: 04/17/24 09:05 MB [id number]) OP-PT Subjective Patient Comments Patient Comments Pt is using tennis ball for massage for hip and shoulder and it is good and she can feel it. 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 PT-OP-J Posture/Palpation/Skin Start: 03/21/24 12:12 Freq: Status: Active Protocol: Document 03/27/24 07:26 MB (Rec: 03/27/24 08:14 MB [id number]) Posture Evaluation Comments Posture Comments Pt wearing shoes d/t leg length difference and cork full length in left shoe: right shoulder more forward and high compared to the left (pt reports old right rotator cuff injury and limited range) , Dowager's hump and then decreased thoracic kyphosis upper to middle thoracic spine and then stiffness/kyphosis lower thoracic spine, decreased lumbar lordosis, right iliac crest higher than the left, right knee mildly higher than left. PT cannot check SI mobility in supine d/t pt engages abdomen and she has increased soft tisse over anterior pelvis, tender to touch. Pt cannot relax leg for SLR right and helps PT. Left passive SLR grossly 40 deg, very tight. PT-OP-M Strength Start: 03/21/24 12:12 Freq: Status: Active Protocol: Document 03/27/24 07:26 MB (Rec: 03/27/24 08:14 MB [id number]) Hip Strength Hip Manual Muscle Testing Right Flexion (L2) 4+ Good+ Abduction 4+ Good+ Comments Pt does not tolerate passive ER or IR or Scour Left Flexion (L2) 4+ Good+ Abduction 3+ Fair+ Comments Minimal tolerance to PROM in supine Knee Strength Knee Manual Muscle Testing Right Flexion (S2) 4+ Good+ Extension (L3) 4- Good- Left Flexion (S2) 4 Good Extension (L3) 4- Good- Ankle/Foot Strength Ankle and Foot Manual Muscle Testing Right Dorsiflexion (L4) 4 Good Comments Pt cannot perform one heel raise on either leg Left Dorsiflexion (L4) 5 Normal Comments Pt cannot perform one heel raise on either leg Toe Strength Toe Manual Muscle Testing Right Great Toe Extension 4 Good Left Great Toe Extension 5 Normal PT-OP-Q Treatments Start: 03/21/24 12:12 Freq: Status: Active Protocol: Document 04/17/24 08:16 MB (Rec: 04/17/24 09:05 [id number]) Cardio Equipment Bicycle (Upright) Duration (Minutes) 10 Resistance 4-5 Seat Position 5 Therapeutic Exercises Supine Exercises Hip Abd Supine Exercise Name Hook lying clam (HEP) Equipment Used Level 1 band with knot around it Comments Many reps and education where to feel it and pt has a lot of trouble feelin Jose stretch Supine Exercise Name HEP and opp knee is bent Side bilateral Reps/Minutes 1 rep each leg Comments 30-45 sec Glute max stretch Supine Exercise Name Practiced from HEP Side bilateral Equipment Used No towel Reps/Minutes 1 rep Comments 30-45 sec with knee to chest Adductor stretch in hook lying Supine Exercise Name HEP, written on handout Side bilateral Reps/Minutes 1 rep each leg Comments 30-45 sec each leg Pelvic realignment exercises Supine Exercise Name Performs for HEP review Side bilateral Equipment Used Blue ball, no towel Reps/Minutes 5 reps, 3 sec hold Comments Feet together ball squeeze iso , knee opp ankle iso, thigh press down iso Sitting Exercises Hamstring stretch Sitting Exercise Name Pt demos B legs like she was doing previous to this PT course Side bilateral Comments Feet out, both legs today and toes up PT-OP-T Assessment and Plan Start: 03/21/24 12:12 Freq: Status: Active Protocol: Document 04/17/24 08:16 MB (Rec: 04/17/24 09:05 SIMI [id number]) Physical Therapy Assessment Goals 4 Impairment Inability to descend steps with left foot first Halfway Goal (LTG) Pt will be able to ascend and descend two steps with alternating step pattern and use of rail to improve community ambulation and I. LTG Duration 5 weeks 3 Impairment Lack of HEP Halfway Goal (LTG) Pt will perform progressive HEP with I including pelvic realignment, flexibility, strengthening and balance exercises to improve pain and quality of life. LTG Duration 5 weeks 2 Impairment Weakness Halfway Goal (LTG) Pt will present with B hip flexion and abduction and knee flexion and extension strength to at least 4+/5 to improve transfers, gait and balance. LTG Duration 5 weeks 1 Impairment LEF score reflecting over 52% dysfunction Halfway Goal (LTG) Pt will present with LEF score reflecting no more than 45% dysfunction to improve quality of life and I. LTG Duration 5 weeks Assessment Summary Assessment HEP review today for correct performance and added upright bike today. Pt has a lot of trouble understanding hook lying clam and she does not like the band and so d/cd this exercise. Exercises are confusing as her photos do not match what she was taught and so d/cd many exercises today and made the exercises inactive in the EMR so that providers will be able to see what she is doing. Will check in with SENIOR WEB ANALYST as schedule allows . Please make sure all handouts match what is taught to patient. Physical Therapy Plan Frequency and Duration Frequency of Treatment 2x/Week Duration of treatment (weeks) 5 Plan of Care Start Date 03/27/24 Plan of Care End Date 05/05/24 Therapeutic Interventions Therapeutic Interventions Balance Training,Canalithic Repositioning,Gait Training, Home Exercise Program,Joint Mobilizations,Manual Therapy, Neuromuscular Re-education, Patient/Caregiver Education, Self-Care/Home Management,Soft Tissue Mobilization,Taping, Therapeutic Activities, Therapeutic Exercises Modalities Cold Pack/Ice Massage,Electric Stimulation,Hot Packs, Ultrasound Next Visit Focus/Plan Next Note Type Treatment Note Next Visit Plan Consider upright stationary bike to begin. Review exercises, re-initiate gentle core progression and progress balance. Please make sure all handouts match what is taught the patient.
--- NOTE | 2024-04-19 11:31 | PT.OTN ---
Current Diagnoses Strain of unspecified muscle(s) and tendon(s) at lower leg level, right leg, subsequent encounter (04/19/24) History of falling (04/19/24) Physical Therapy Treatment Note PT-OP-A Visit Information Start: 03/21/24 12:12 Freq: Status: Active Protocol: Document 04/19/24 10:47 MB (Rec: 04/19/24 10:56 MB [id number]) Out-Patient Physical Therapy Visit Information Visit Information Visit Type Treatment Note Visit Note [facility] [employer] Progress note on 04/24/24 treatment by primary PT Visit Start Time 10:47 Visit Stop Time 11:27 Visit Number 8 Number of INSTRUMENT CALIBRATOR Visits 0 Evaluation Information Evaluation Date 03/27/24 Precautions Precautions Pt is not on blood thinners, pt has white coat syndrome when checking BP PT-OP-B Current Condition Start: 03/21/24 12:12 Freq: Status: Active Protocol: Document 03/27/24 07:26 MB (Rec: 03/27/24 08:14 MB [id number]) Current Condition History of Current Condition Onset Date 02/26/24 Current Complaints Right knee pain History of Current Condition Pt reports a S1-S2 nerve problem and periodically, she has pulled hamstrings and they are always tight. On the 25 of February, she had typically hamstring tightness that moved to inner thigh. She took a step down and then her right knee hurt. The walk-in clinic person stated that she strained her leg. It's been about a month and the knee is not right. She has extremely sore medial knee and lateral knee discomfort on the right. Her right calf is also sore. She tried the stairs again last week and she got sharp pain in the middle of her right knee. She is side stepping down the steps now, leading with LLE. Pt has soreness over the right knee in general. She came to therapy at this clinic at the past but had scheduling problems and could not get in. MRI brain 03/07 negative and US doppler LLE 06/05 negative. Surgery on left saphenous vein 12/09/23 and similar surgery on right leg 5 years ago. Pt denies balance issues. She sleeps well and sleeps on her side without pillow support. Pt denies numbness and tingling in legs. She does leg stretching everyday. Pt states her sacrum has not been acting up and no trouble with bowel and bladder. She had hysterectomy years ago without trouble. Treatment Goals Patient/Caregiver Goals To decrease right knee pain PT-OP-C Subjective Start: 03/21/24 12:12 Freq: Status: Active Protocol: Document 04/19/24 10:47 MB (Rec: 04/19/24 10:58 MB [id number]) OP-PT Subjective Patient Comments Patient Comments Right knee (pt points to distal quads and patellar tendon) was a little problematic and patient thinks it might be d/t upright bike for 10'. 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 PT-OP-J Posture/Palpation/Skin Start: 03/21/24 12:12 Freq: Status: Active Protocol: Document 03/27/24 07:26 MB (Rec: 03/27/24 08:14 MB [id number]) Posture Evaluation Comments Posture Comments Pt wearing shoes d/t leg length difference and cork full length in left shoe: right shoulder more forward and high compared to the left (pt reports old right rotator cuff injury and limited range) , Dowager's hump and then decreased thoracic kyphosis upper to middle thoracic spine and then stiffness/kyphosis lower thoracic spine, decreased lumbar lordosis, right iliac crest higher than the left, right knee mildly higher than left. PT cannot check SI mobility in supine d/t pt engages abdomen and she has increased soft tisse over anterior pelvis, tender to touch. Pt cannot relax leg for SLR right and helps PT. Left passive SLR grossly 40 deg, very tight. PT-OP-M Strength Start: 03/21/24 12:12 Freq: Status: Active Protocol: Document 03/27/24 07:26 MB (Rec: 03/27/24 08:14 MB [id number]) Hip Strength Hip Manual Muscle Testing Right Flexion (L2) 4+ Good+ Abduction 4+ Good+ Comments Pt does not tolerate passive ER or IR or Scour Left Flexion (L2) 4+ Good+ Abduction 3+ Fair+ Comments Minimal tolerance to PROM in supine Knee Strength Knee Manual Muscle Testing Right Flexion (S2) 4+ Good+ Extension (L3) 4- Good- Left Flexion (S2) 4 Good Extension (L3) 4- Good- Ankle/Foot Strength Ankle and Foot Manual Muscle Testing Right Dorsiflexion (L4) 4 Good Comments Pt cannot perform one heel raise on either leg Left Dorsiflexion (L4) 5 Normal Comments Pt cannot perform one heel raise on either leg Toe Strength Toe Manual Muscle Testing Right Great Toe Extension 4 Good Left Great Toe Extension 5 Normal PT-OP-Q Treatments Start: 03/21/24 12:12 Freq: Status: Active Protocol: Document 04/19/24 10:47 MB (Rec: 04/19/24 11:28 MB [id number]) Therapeutic Exercises Supine Exercises Core Supine Exercise Name Abdominal drawing in and pelvic tilt, HO given Comments Re-printed all abdominal exercises and checking as go down for pt understan Manual Therapy Treatment Consent Patient gave verbal consent for manual Yes treatment Other Other Manual Treatments Pt hook lying with head and legs supported: STM and positional release B thoracolumbar paraspinals, QL, hamstrings, glutes, quads, vastus lateralis and PFs and most work and tension on right vastus lateralis and medial hamstring PT-OP-T Assessment and Plan Start: 03/21/24 12:12 Freq: Status: Active Protocol: Document 04/19/24 10:47 MB (Rec: 04/19/24 11:28 MB [id number]) Physical Therapy Assessment Goals 4 Impairment Inability to descend steps with left foot first Machine Clothing Man Goal (LTG) Pt will be able to ascend and descend two steps with alternating step pattern and use of rail to improve community ambulation and I. LTG Duration 5 weeks 3 Impairment Lack of HEP Alf Goal (LTG) Pt will perform progressive HEP with I including pelvic realignment, flexibility, strengthening and balance exercises to improve pain and quality of life. LTG Duration 5 weeks 2 Impairment Weakness Alf Goal (LTG) Pt will present with B hip flexion and abduction and knee flexion and extension strength to at least 4+/5 to improve transfers, gait and balance. LTG Duration 5 weeks 1 Impairment LEF score reflecting over 52% dysfunction Machine Clothing Man Goal (LTG) Pt will present with LEF score reflecting no more than 45% dysfunction to improve quality of life and I. LTG Duration 5 weeks Assessment Summary Assessment Decreased time on upright bike today and more manual work today with most tension on right vastus lateralis and medial hamstring. Re-added abdominal program as handouts together to make better sense and will work through and check ones to perform as progressed. Physical Therapy Plan Frequency and Duration Frequency of Treatment 2x/Week Duration of treatment (weeks) 5 Plan of Care Start Date 03/27/24 Plan of Care End Date 05/05/24 Therapeutic Interventions Therapeutic Interventions Balance Training,Canalithic Repositioning,Gait Training, Home Exercise Program,Joint Mobilizations,Manual Therapy, Neuromuscular Re-education, Patient/Caregiver Education, Self-Care/Home Management,Soft Tissue Mobilization,Taping, Therapeutic Activities, Therapeutic Exercises Modalities Cold Pack/Ice Massage,Electric Stimulation,Hot Packs, Ultrasound Next Visit Focus/Plan Next Note Type Treatment Note Next Visit Plan Consider upright stationary bike to begin. Gentle core progression and progress balance. Please make sure all handouts match what is taught the patient. Consider self-massage with rolling pin right thigh.
--- NOTE | 2024-04-24 09:37 | PT.OTN ---
Current Diagnoses Strain of unspecified muscle(s) and tendon(s) at lower leg level, right leg, subsequent encounter (04/24/24) History of falling (04/24/24) Physical Therapy Treatment Note PT-OP-A Visit Information Start: 03/21/24 12:12 Freq: Status: Active Protocol: Document 04/24/24 08:59 MB (Rec: 04/24/24 09:33 MB [id number]) Out-Patient Physical Therapy Visit Information Visit Information Visit Type Progress Note Visit Note [facility] [employer] Visit Start Time 08:59 Visit Stop Time 09:37 Visit Number 9 Number of SPEECH THERAPIST TECHNICIAN Visits 0 Evaluation Information Evaluation Date 03/27/24 Precautions Precautions Pt is not on blood thinners, pt has white coat syndrome when checking BP PT-OP-B Current Condition Start: 03/21/24 12:12 Freq: Status: Active Protocol: Document 03/27/24 07:26 MB (Rec: 03/27/24 08:14 MB [id number]) Current Condition History of Current Condition Onset Date 02/26/24 Current Complaints Right knee pain History of Current Condition Pt reports a S1-S2 nerve problem and periodically, she has pulled hamstrings and they are always tight. On the 25 of February, she had typically hamstring tightness that moved to inner thigh. She took a step down and then her right knee hurt. The walk-in clinic person stated that she strained her leg. It's been about a month and the knee is not right. She has extremely sore medial knee and lateral knee discomfort on the right. Her right calf is also sore. She tried the stairs again last week and she got sharp pain in the middle of her right knee. She is side stepping down the steps now, leading with LLE. Pt has soreness over the right knee in general. She came to therapy at this clinic at the past but had scheduling problems and could not get in. MRI brain 03/07 negative and US doppler LLE 06/05 negative. Surgery on left saphenous vein 12/09/23 and similar surgery on right leg 5 years ago. Pt denies balance issues. She sleeps well and sleeps on her side without pillow support. Pt denies numbness and tingling in legs. She does leg stretching everyday. Pt states her sacrum has not been acting up and no trouble with bowel and bladder. She had hysterectomy years ago without trouble. Treatment Goals Patient/Caregiver Goals To decrease right knee pain PT-OP-C Subjective Start: 03/21/24 12:12 Freq: Status: Active Protocol: Document 04/24/24 08:59 MB (Rec: 04/24/24 09:33 MB [id number]) OP-PT Subjective Patient Comments Patient Comments Pt reports a little soreness and rubs lateral right hip and right groin areas. 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 PT-OP-J Posture/Palpation/Skin Start: 03/21/24 12:12 Freq: Status: Active Protocol: Document 03/27/24 07:26 MB (Rec: 03/27/24 08:14 MB [id number]) Posture Evaluation Comments Posture Comments Pt wearing shoes d/t leg length difference and cork full length in left shoe: right shoulder more forward and high compared to the left (pt reports old right rotator cuff injury and limited range) , Dowager's hump and then decreased thoracic kyphosis upper to middle thoracic spine and then stiffness/kyphosis lower thoracic spine, decreased lumbar lordosis, right iliac crest higher than the left, right knee mildly higher than left. PT cannot check SI mobility in supine d/t pt engages abdomen and she has increased soft tisse over anterior pelvis, tender to touch. Pt cannot relax leg for SLR right and helps PT. Left passive SLR grossly 40 deg, very tight. PT-OP-M Strength Start: 03/21/24 12:12 Freq: Status: Active Protocol: Document 03/27/24 07:26 MB (Rec: 03/27/24 08:14 MB [id number]) Hip Strength Hip Manual Muscle Testing Right Flexion (L2) 4+ Good+ Abduction 4+ Good+ Comments Pt does not tolerate passive ER or IR or Scour Left Flexion (L2) 4+ Good+ Abduction 3+ Fair+ Comments Minimal tolerance to PROM in supine Knee Strength Knee Manual Muscle Testing Right Flexion (S2) 4+ Good+ Extension (L3) 4- Good- Left Flexion (S2) 4 Good Extension (L3) 4- Good- Ankle/Foot Strength Ankle and Foot Manual Muscle Testing Right Dorsiflexion (L4) 4 Good Comments Pt cannot perform one heel raise on either leg Left Dorsiflexion (L4) 5 Normal Comments Pt cannot perform one heel raise on either leg Toe Strength Toe Manual Muscle Testing Right Great Toe Extension 4 Good Left Great Toe Extension 5 Normal PT-OP-Q Treatments Start: 03/21/24 12:12 Freq: Status: Active Protocol: Document 04/24/24 08:59 MB (Rec: 04/24/24 09:33 MB [id number]) Cardio Equipment Bicycle (Upright) Duration (Minutes) 6 Resistance 3 Seat Position 6 Other Pt c/o right back soreness Therapeutic Exercises Supine Exercises MMT LEs Comments See goals for findings today Core Supine Exercise Name Abd drawing in, knee rocking, HS Side bilateral Comments Many reps for review, ed set position and less movement Standing Exercises Stair exercise for home Comments Use of B rail, cues for stepping up and down 2-4 steps , normal stepping PT-OP-T Assessment and Plan Start: 03/21/24 12:12 Freq: Status: Active Protocol: Document 04/24/24 08:59 MB (Rec: 04/24/24 09:33 MB [id number]) Physical Therapy Assessment Goals 4 Impairment Inability to descend steps with left foot first Small Engine Technician Goal (LTG) Pt will be able to ascend and descend two steps with alternating step pattern and use of rail to improve community ambulation and I. 04/24/24: Pt is able to ascend and descend several steps several times with B rails and she tends to point her right toe down and cue to step normally. LTG Duration 5 weeks 3 Impairment Lack of HEP Residential Goal (LTG) Pt will perform progressive HEP with I including pelvic realignment, flexibility, strengthening and balance exercises to improve pain and quality of life. 04/24/24: Pt is performing exercises on handouts including alignment, flexibility and gentle core progression LTG Duration 5 weeks 2 Impairment Weakness Residential Goal (LTG) Pt will present with B hip flexion and abduction and knee flexion and extension strength to at least 4+/5 to improve transfers, gait and balance. 04/24/24: MMT today: left hip flexion and abduction 4/5; left knee flexion and extension 4+/5; right hip flexion and abduction 4/5, right knee extension 4+/5, knee flexion 4/5. LTG Duration 5 weeks 1 Impairment LEF score reflecting over 52% dysfunction Residential Goal (LTG) Pt will present with LEF score reflecting no more than 45% dysfunction to improve quality of life and I. 04/24/24: LEF score reflects 33.75% impairment LTG Duration 5 weeks Assessment Summary Assessment Pt has trouble differentiating between pain and muscle work and soreness. Given this and trouble with body awareness and understanding exercises, exercise progression has been slow and cut out strengthening exercises. Will complete gentle core progression and add balance exercises such as Tandem and SLS in remaining treatments and perform exercise review. Pt has progressed toward HEP goal, LEF goal, step goal and strength goal. Pt con't with guarding behavior with MMT today. Physical Therapy Plan Frequency and Duration Frequency of Treatment 2x/Week Duration of treatment (weeks) 5 Plan of Care Start Date 03/27/24 Plan of Care End Date 05/05/24 Therapeutic Interventions Therapeutic Interventions Balance Training,Canalithic Repositioning,Gait Training, Home Exercise Program,Joint Mobilizations,Manual Therapy, Neuromuscular Re-education, Patient/Caregiver Education, Self-Care/Home Management,Soft Tissue Mobilization,Taping, Therapeutic Activities, Therapeutic Exercises Modalities Cold Pack/Ice Massage,Electric Stimulation,Hot Packs, Ultrasound Next Visit Focus/Plan Next Note Type Treatment Note Next Visit Plan Start upright bike for 5' warm -up, con't gentle core progression in handouts given to pt--last one to try is bridge, add 1-2 standing balance exercises such as partial or full tandem or SLS and review HEP as needed.
--- NOTE | 2024-04-27 13:31 | PT.OTN ---
Current Diagnoses Strain of unspecified muscle(s) and tendon(s) at lower leg level, right leg, subsequent encounter (04/27/24) History of falling (04/27/24) Physical Therapy Treatment Note PT-OP-A Visit Information Start: 03/21/24 12:12 Freq: Status: Active Protocol: Document 04/27/24 10:51 SW (Rec: 04/27/24 12:52 SW [id number]) Out-Patient Physical Therapy Visit Information Visit Information Visit Type Treatment Note Visit Note [employer] Visit Start Time 10:47 Visit Stop Time 11:25 Visit Number 10 Number of CLASSIFIED COPY CONTROL CLERK Visits 1 Precautions Precautions Pt is not on blood thinners, pt has white coat syndrome when checking BP PT-OP-B Current Condition Start: 03/21/24 12:12 Freq: Status: Active Protocol: Document 03/27/24 07:26 MB (Rec: 03/27/24 08:14 MB [id number]) Current Condition History of Current Condition Onset Date 02/26/24 Current Complaints Right knee pain History of Current Condition Pt reports a S1-S2 nerve problem and periodically, she has pulled hamstrings and they are always tight. On the 25 of February, she had typically hamstring tightness that moved to inner thigh. She took a step down and then her right knee hurt. The walk-in clinic person stated that she strained her leg. It's been about a month and the knee is not right. She has extremely sore medial knee and lateral knee discomfort on the right. Her right calf is also sore. She tried the stairs again last week and she got sharp pain in the middle of her right knee. She is side stepping down the steps now, leading with LLE. Pt has soreness over the right knee in general. She came to therapy at this clinic at the past but had scheduling problems and could not get in. MRI brain 03/07 negative and US doppler LLE 06/05 negative. Surgery on left saphenous vein 12/09/23 and similar surgery on right leg 5 years ago. Pt denies balance issues. She sleeps well and sleeps on her side without pillow support. Pt denies numbness and tingling in legs. She does leg stretching everyday. Pt states her sacrum has not been acting up and no trouble with bowel and bladder. She had hysterectomy years ago without trouble. Treatment Goals Patient/Caregiver Goals To decrease right knee pain PT-OP-C Subjective Start: 03/21/24 12:12 Freq: Status: Active Protocol: Document 04/27/24 10:51 SW (Rec: 04/27/24 12:52 SW [id number]) OP-PT Subjective Patient Comments Patient Comments Pt reports having discomfort when driving. No new call outs since last session. 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 PT-OP-J Posture/Palpation/Skin Start: 03/21/24 12:12 Freq: Status: Active Protocol: Document 03/27/24 07:26 MB (Rec: 03/27/24 08:14 MB [id number]) Posture Evaluation Comments Posture Comments Pt wearing shoes d/t leg length difference and cork full length in left shoe: right shoulder more forward and high compared to the left (pt reports old right rotator cuff injury and limited range) , Dowager's hump and then decreased thoracic kyphosis upper to middle thoracic spine and then stiffness/kyphosis lower thoracic spine, decreased lumbar lordosis, right iliac crest higher than the left, right knee mildly higher than left. PT cannot check SI mobility in supine d/t pt engages abdomen and she has increased soft tisse over anterior pelvis, tender to touch. Pt cannot relax leg for SLR right and helps PT. Left passive SLR grossly 40 deg, very tight. PT-OP-M Strength Start: 03/21/24 12:12 Freq: Status: Active Protocol: Document 03/27/24 07:26 MB (Rec: 03/27/24 08:14 MB [id number]) Hip Strength Hip Manual Muscle Testing Right Flexion (L2) 4+ Good+ Abduction 4+ Good+ Comments Pt does not tolerate passive ER or IR or Scour Left Flexion (L2) 4+ Good+ Abduction 3+ Fair+ Comments Minimal tolerance to PROM in supine Knee Strength Knee Manual Muscle Testing Right Flexion (S2) 4+ Good+ Extension (L3) 4- Good- Left Flexion (S2) 4 Good Extension (L3) 4- Good- Ankle/Foot Strength Ankle and Foot Manual Muscle Testing Right Dorsiflexion (L4) 4 Good Comments Pt cannot perform one heel raise on either leg Left Dorsiflexion (L4) 5 Normal Comments Pt cannot perform one heel raise on either leg Toe Strength Toe Manual Muscle Testing Right Great Toe Extension 4 Good Left Great Toe Extension 5 Normal PT-OP-Q Treatments Start: 03/21/24 12:12 Freq: Status: Active Protocol: Document 04/27/24 10:51 SW (Rec: 04/27/24 12:52 [id number]) Cardio Equipment Bicycle (Upright) Duration (Minutes) 5 Resistance 3 Seat Position 6 Other Pain free, no discomfort in posterior knee today Therapeutic Exercises Supine Exercises Core Supine Exercise Name Abd drawing in, knee rocking, HS, Mini March Side bilateral Comments Reviewed for carryover, palpated for core activation Jose stretch Supine Exercise Name reviewed Neuro Re-Education Treatment Balance Activities SLS Details SLS (issued HEP HO) Equipment // bars Reps/Duration multiple trials Comments UE Light touch, close SBA, gait belt donned extended time for pt education Reviewed safe setup for HEP Tandem Details full tandem (issued HEP HO) Surface stable Equipment // bars Reps/Duration multiple trials Comments Hand hold assist>fingertip touch>No UE assist, close SBA, gait belt donned extended time for pt education Reviewed safe setup for HEP Self-Care/Home Management Treatment Education Patient Education Home Exercise Program,Joint Protection,Pain Management, Safety Other Education HEP education, safety setup for balance HEP, RLE alignment while driving PT-OP-T Assessment and Plan Start: 03/21/24 12:12 Freq: Status: Active Protocol: Document 04/27/24 10:51 SW (Rec: 04/27/24 12:52 [id number]) Physical Therapy Assessment Goals 4 Impairment Inability to descend steps with left foot first Used Car Lot Attendant Goal (LTG) Pt will be able to ascend and descend two steps with alternating step pattern and use of rail to improve community ambulation and I. 04/24/24: Pt is able to ascend and descend several steps several times with B rails and she tends to point her right toe down and cue to step normally. LTG Duration 5 weeks 3 Impairment Lack of HEP Skilled Nursing Goal (LTG) Pt will perform progressive HEP with I including pelvic realignment, flexibility, strengthening and balance exercises to improve pain and quality of life. 04/24/24: Pt is performing exercises on handouts including alignment, flexibility and gentle core progression LTG Duration 5 weeks 2 Impairment Weakness Skilled Nursing Goal (LTG) Pt will present with B hip flexion and abduction and knee flexion and extension strength to at least 4+/5 to improve transfers, gait and balance. 04/24/24: MMT today: left hip flexion and abduction 4/5; left knee flexion and extension 4+/5; right hip flexion and abduction 4/5, right knee extension 4+/5, knee flexion 4/5. LTG Duration 5 weeks 1 Impairment LEF score reflecting over 52% dysfunction Skilled Nursing Goal (LTG) Pt will present with LEF score reflecting no more than 45% dysfunction to improve quality of life and I. 04/24/24: LEF score reflects 33.75% impairment LTG Duration 5 weeks Assessment Summary Assessment Progressed pt with core stabilization with minimal march today, cues for abdominal draw in prior to august, good tolerance. Palpated core mm's during core exercises this session to assess engagement throughout entire exercise. Initiated balance this session. Issued HEP HO for tandem and SLS, reviewed and verbal confirmation of pt understanding for safe setup and execution of balance. Pt ankle strategy engaged and hip strategy engaged with SLS, light touch HEALTH COUNSELOR assist needed for SLS bilaterally, cued to engage core, improved balance. Physical Therapy Plan Frequency and Duration Frequency of Treatment 2x/Week Duration of treatment (weeks) 5 Plan of Care Start Date 03/27/24 Plan of Care End Date 05/05/24 Therapeutic Interventions Therapeutic Interventions Balance Training,Canalithic Repositioning,Gait Training, Home Exercise Program,Joint Mobilizations,Manual Therapy, Neuromuscular Re-education, Patient/Caregiver Education, Self-Care/Home Management,Soft Tissue Mobilization,Taping, Therapeutic Activities, Therapeutic Exercises Modalities Cold Pack/Ice Massage,Electric Stimulation,Hot Packs, Ultrasound Next Visit Focus/Plan Next Note Type Treatment Note Next Visit Plan Review new HEP for balance next session and followup on RLE alignment with driving. Start upright bike for 5' warm -up, con't gentle core progression in handouts given to pt--last one to try is bridge, add 1-2 standing balance exercises such as partial or full tandem or SLS and review HEP as needed.
--- NOTE | 2024-05-01 09:39 | PT.OTN ---
Current Diagnoses Strain of unspecified muscle(s) and tendon(s) at lower leg level, right leg, subsequent encounter (05/01/24) History of falling (05/01/24) Physical Therapy Treatment Note PT-OP-A Visit Information Start: 03/21/24 12:12 Freq: Status: Active Protocol: Document 05/01/24 09:01 MB (Rec: 05/01/24 09:39 MB [id number]) Out-Patient Physical Therapy Visit Information Visit Information Visit Type Treatment Note Visit Note [facility] [employer] Visit Start Time 09:01 Visit Stop Time 09:41 Visit Number 11 Number of PLATE STACKER Visits 0 Evaluation Information Evaluation Date 03/27/24 Precautions Precautions Pt is not on blood thinners, pt has white coat syndrome when checking BP. Left pupil is larger than the right and is normal. PT-OP-B Current Condition Start: 03/21/24 12:12 Freq: Status: Active Protocol: Document 03/27/24 07:26 MB (Rec: 03/27/24 08:14 MB [id number]) Current Condition History of Current Condition Onset Date 02/26/24 Current Complaints Right knee pain History of Current Condition Pt reports a S1-S2 nerve problem and periodically, she has pulled hamstrings and they are always tight. On the 25 of February, she had typically hamstring tightness that moved to inner thigh. She took a step down and then her right knee hurt. The walk-in clinic person stated that she strained her leg. It's been about a month and the knee is not right. She has extremely sore medial knee and lateral knee discomfort on the right. Her right calf is also sore. She tried the stairs again last week and she got sharp pain in the middle of her right knee. She is side stepping down the steps now, leading with LLE. Pt has soreness over the right knee in general. She came to therapy at this clinic at the past but had scheduling problems and could not get in. MRI brain 03/07 negative and US doppler LLE 06/05 negative. Surgery on left saphenous vein 12/09/23 and similar surgery on right leg 5 years ago. Pt denies balance issues. She sleeps well and sleeps on her side without pillow support. Pt denies numbness and tingling in legs. She does leg stretching everyday. Pt states her sacrum has not been acting up and no trouble with bowel and bladder. She had hysterectomy years ago without trouble. Treatment Goals Patient/Caregiver Goals To decrease right knee pain PT-OP-C Subjective Start: 03/21/24 12:12 Freq: Status: Active Protocol: Document 05/01/24 09:01 MB (Rec: 05/01/24 09:39 MB [id number]) OP-PT Subjective Patient Comments Patient Comments Pt states she is working on her exercises and she is working hard on the last exercises. 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 PT-OP-J Posture/Palpation/Skin Start: 03/21/24 12:12 Freq: Status: Active Protocol: Document 03/27/24 07:26 MB (Rec: 03/27/24 08:14 MB [id number]) Posture Evaluation Comments Posture Comments Pt wearing shoes d/t leg length difference and cork full length in left shoe: right shoulder more forward and high compared to the left (pt reports old right rotator cuff injury and limited range) , Dowager's hump and then decreased thoracic kyphosis upper to middle thoracic spine and then stiffness/kyphosis lower thoracic spine, decreased lumbar lordosis, right iliac crest higher than the left, right knee mildly higher than left. PT cannot check SI mobility in supine d/t pt engages abdomen and she has increased soft tisse over anterior pelvis, tender to touch. Pt cannot relax leg for SLR right and helps PT. Left passive SLR grossly 40 deg, very tight. PT-OP-M Strength Start: 03/21/24 12:12 Freq: Status: Active Protocol: Document 03/27/24 07:26 MB (Rec: 03/27/24 08:14 MB [id number]) Hip Strength Hip Manual Muscle Testing Right Flexion (L2) 4+ Good+ Abduction 4+ Good+ Comments Pt does not tolerate passive ER or IR or Scour Left Flexion (L2) 4+ Good+ Abduction 3+ Fair+ Comments Minimal tolerance to PROM in supine Knee Strength Knee Manual Muscle Testing Right Flexion (S2) 4+ Good+ Extension (L3) 4- Good- Left Flexion (S2) 4 Good Extension (L3) 4- Good- Ankle/Foot Strength Ankle and Foot Manual Muscle Testing Right Dorsiflexion (L4) 4 Good Comments Pt cannot perform one heel raise on either leg Left Dorsiflexion (L4) 5 Normal Comments Pt cannot perform one heel raise on either leg Toe Strength Toe Manual Muscle Testing Right Great Toe Extension 4 Good Left Great Toe Extension 5 Normal PT-OP-Q Treatments Start: 03/21/24 12:12 Freq: Status: Active Protocol: Document 05/01/24 09:01 MB (Rec: 05/01/24 09:39 MB [id number]) Cardio Equipment Recumbent Stepper (Sci-Fit) Duration (Minutes) 10 Resistance 2 Seat Position 8 Therapeutic Exercises Supine Exercises Core Supine Exercise Name Abd drawing in, knee rocking, HS, Mini March Side bilateral Comments One rep review of each today Standing Exercises Racquet ball massage Standing Exercise Name Works better than tennis ball Comments Cues to work on the meat Pool exercises for her vacation Standing Exercise Name Water walking, march, hamstring curls, squats, hip abd/ext, flexion Comments PT provides handouts in plastic folders and PT demo Stair exercise for home Comments Pt performs several reps today with two rails Neuro Re-Education Treatment Balance Activities SLS Comments Reviewed SLS and ed pt to only use one fingertip of one hand to maintain static standing balance and she holds on pretty hard with full finger, 30 sec left leg; pt starts with both index finger support and then reduces to one finger. Cues to not lean one leg onto the other. Tandem Comments Tandem in the corner, up to a minute and pt performs with increased sway and superv today; more challenge with left foot behind Self-Care/Home Management Treatment Education Other Education Discussion about the benefits of [facility] [employer] class and provided handout with education to sign up and that she would need to go pre balance testing date May 29 and then the class starts June 19 and runs for 8 weeks PT-OP-T Assessment and Plan Start: 03/21/24 12:12 Freq: Status: Active Protocol: Document 05/01/24 09:01 MB (Rec: 05/01/24 09:39 MB [id number]) Physical Therapy Assessment Goals 4 Impairment Inability to descend steps with left foot first Acid Remover Goal (LTG) Pt will be able to ascend and descend two steps with alternating step pattern and use of rail to improve community ambulation and I. 04/24/24: Pt is able to ascend and descend several steps several times with B rails and she tends to point her right toe down and cue to step normally. LTG Duration 5 weeks 3 Impairment Lack of HEP Longterm Goal (LTG) Pt will perform progressive HEP with I including pelvic realignment, flexibility, strengthening and balance exercises to improve pain and quality of life. 04/24/24: Pt is performing exercises on handouts including alignment, flexibility and gentle core progression LTG Duration 5 weeks 2 Impairment Weakness Longterm Goal (LTG) Pt will present with B hip flexion and abduction and knee flexion and extension strength to at least 4+/5 to improve transfers, gait and balance. 04/24/24: MMT today: left hip flexion and abduction 4/5; left knee flexion and extension 4+/5; right hip flexion and abduction 4/5, right knee extension 4+/5, knee flexion 4/5. LTG Duration 5 weeks 1 Impairment LEF score reflecting over 52% dysfunction Acid Remover Goal (LTG) Pt will present with LEF score reflecting no more than 45% dysfunction to improve quality of life and I. 04/24/24: LEF score reflects 33.75% impairment LTG Duration 5 weeks Assessment Summary Assessment Exercise review to help pt understanding today and provided ed about [place] and exercises she can perform in the pool in [place]. Physical Therapy Plan Frequency and Duration Frequency of Treatment 2x/Week Duration of treatment (weeks) 5 Plan of Care Start Date 03/27/24 Plan of Care End Date 05/05/24 Therapeutic Interventions Therapeutic Interventions Balance Training,Canalithic Repositioning,Gait Training, Home Exercise Program,Joint Mobilizations,Manual Therapy, Neuromuscular Re-education, Patient/Caregiver Education, Self-Care/Home Management,Soft Tissue Mobilization,Taping, Therapeutic Activities, Therapeutic Exercises Modalities Cold Pack/Ice Massage,Electric Stimulation,Hot Packs, Ultrasound Next Visit Focus/Plan Next Note Type Discharge Summary
--- NOTE | 2024-05-03 10:28 | PT.OTN ---
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 Left pupil is larger than the right and is normal. PT-OP-B Current Condition Start: 03/21/24 12:12 Freq: Status: Active Protocol: Document 03/27/24 07:26 MB (Rec: 03/27/24 08:14 MB [id number]) Current Condition History of Current Condition Onset Date 02/26/24 Current Complaints Right knee pain History of Current Condition Pt reports a S1-S2 nerve problem and periodically, she has pulled hamstrings and they are always tight. On the 25 of February, she had typically hamstring tightness that moved to inner thigh. She took a step down and then her right knee hurt. The walk-in clinic person stated that she strained her leg. It's been about a month and the knee is not right. She has extremely sore medial knee and lateral knee discomfort on the right. Her right calf is also sore. She tried the stairs again last week and she got sharp pain in the middle of her right knee. She is side stepping down the steps now, leading with LLE. Pt has soreness over the right knee in general. She came to therapy at this clinic at the past but had scheduling problems and could not get in. MRI brain 03/07 negative and US doppler LLE 06/05 negative. Surgery on left saphenous vein 12/09/23 and similar surgery on right leg 5 years ago. Pt denies balance issues. She sleeps well and sleeps on her side without pillow support. Pt denies numbness and tingling in legs. She does leg stretching everyday. Pt states her sacrum has not been acting up and no trouble with bowel and bladder. She had hysterectomy years ago without trouble. Treatment Goals Patient/Caregiver Goals To decrease right knee pain PT-OP-C Subjective Start: 03/21/24 12:12 Freq: Status: Active Protocol: Document 05/03/24 09:48 MB (Rec: 05/03/24 10:22 MB [id number]) OP-PT Subjective Patient Comments Patient Comments Pt called up the hospital and got signed up for the [facility] class with her neighbor. 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 PT-OP-J Posture/Palpation/Skin Start: 03/21/24 12:12 Freq: Status: Active Protocol: Document 03/27/24 07:26 MB (Rec: 03/27/24 08:14 MB [id number]) Posture Evaluation Comments Posture Comments Pt wearing shoes d/t leg length difference and cork full length in left shoe: right shoulder more forward and high compared to the left (pt reports old right rotator cuff injury and limited range) , Dowager's hump and then decreased thoracic kyphosis upper to middle thoracic spine and then stiffness/kyphosis lower thoracic spine, decreased lumbar lordosis, right iliac crest higher than the left, right knee mildly higher than left. PT cannot check SI mobility in supine d/t pt engages abdomen and she has increased soft tisse over anterior pelvis, tender to touch. Pt cannot relax leg for SLR right and helps PT. Left passive SLR grossly 40 deg, very tight. PT-OP-M Strength Start: 03/21/24 12:12 Freq: Status: Active Protocol: Document 03/27/24 07:26 MB (Rec: 03/27/24 08:14 MB [id number]) Hip Strength Hip Manual Muscle Testing Right Flexion (L2) 4+ Good+ Abduction 4+ Good+ Comments Pt does not tolerate passive ER or IR or Scour Left Flexion (L2) 4+ Good+ Abduction 3+ Fair+ Comments Minimal tolerance to PROM in supine Knee Strength Knee Manual Muscle Testing Right Flexion (S2) 4+ Good+ Extension (L3) 4- Good- Left Flexion (S2) 4 Good Extension (L3) 4- Good- Ankle/Foot Strength Ankle and Foot Manual Muscle Testing Right Dorsiflexion (L4) 4 Good Comments Pt cannot perform one heel raise on either leg Left Dorsiflexion (L4) 5 Normal Comments Pt cannot perform one heel raise on either leg Toe Strength Toe Manual Muscle Testing Right Great Toe Extension 4 Good Left Great Toe Extension 5 Normal PT-OP-Q Treatments Start: 03/21/24 12:12 Freq: Status: Active Protocol: Document 05/03/24 09:48 MB (Rec: 05/03/24 10:22 MB [id number]) Cardio Equipment Recumbent Stepper (Sci-Fit) Duration (Minutes) 10 Resistance 4 Seat Position 8 Manual Therapy Treatment Consent Patient gave verbal consent for manual Yes treatment Other Other Manual Treatments Pt supine with head and legs supported: Right STM and positional release hamstrings, right adductors, right vastus lateralis and quads, TFL and hip rotators, PFs PT-OP-T Assessment and Plan Start: 03/21/24 12:12 Freq: Status: Active Protocol: Document 05/03/24 09:48 MB (Rec: 05/03/24 10:22 MB [id number]) Physical Therapy Assessment Goals 4 Impairment Inability to descend steps with left foot first [employer] Goal (LTG) Pt will be able to ascend and descend two steps with alternating step pattern and use of rail to improve community ambulation and I. 04/24/24: Pt is able to ascend and descend several steps several times with B rails and she tends to point her right toe down and cue to step normally. 05/03/24: Pt is able to ascend and descend 4 steps x3 with one rail and good gait form LTG Duration Met 3 Impairment Lack of HEP [employer] Goal (LTG) Pt will perform progressive HEP with I including pelvic realignment, flexibility, strengthening and balance exercises to improve pain and quality of life. 04/24/24: Pt is performing exercises on handouts including alignment, flexibility and gentle core progression 05/03/24: Pt's exercise program is going well and she is working on the [employer] of balance LTG Duration Met 2 Impairment Weakness [facility] Goal (LTG) Pt will present with B hip flexion and abduction and knee flexion and extension strength to at least 4+/5 to improve transfers, gait and balance. 04/24/24: MMT today: left hip flexion and abduction 4/5; left knee flexion and extension 4+/5; right hip flexion and abduction 4/5, right knee extension 4+/5, knee flexion 4/5. 05/03/24: B hip flexion and abduction and knee flexion and extension 4+/5 LTG Duration Met 1 Impairment LEF score reflecting over 52% dysfunction [facility]ci Goal (LTG) Pt will present with LEF score reflecting no more than 45% dysfunction to improve quality of life and I. 04/24/24: LEF score reflects 33.75% impairment 05/03/24 LEF score reflects 33 .75% impairment, similar to last progress note LTG Duration Partially met, progressed Assessment Summary Assessment Pt has met strength, HEP and stair goals and she has progressed towards LEF score. She is ready to d/c performing HEP and she will start [facility] group class for strengthening and balance in June 2024. D /c PT.
== END 2024-05-05 10:13 | disposition home or self-care (01) ==
LOC: PHYS 09:45
PROVIDERS: Family Provider Internal Medicine; PCP Internal Medicine; Referring Provider Physician Assistant; Visit Provider Physician Assistant
DX: S86.911D Strain of unspecified muscle(s) and tendon(s) at lower leg level, right leg, subsequent encounter (principal); Z91.81 History of falling
CPT/HCPCS: 97110; 97112; 97140; 97161; 97535

== ENCOUNTER → 2024-08-08 12:05 | Outpatient (CLI) | payer OTHER, SELFPAY ==
[2024-08-08 13:09] LABS: Hemoglobin A1C% w Est Avg Glu 5.2 % (4.0-6.0)
[2024-08-08 13:16] LABS: BUN Creatinine Ratio 20.9 (6-22); Blood Urea Nitrogen 19 mg/dL (7-17); Calcium 9.6 mg/dL (8.4-10.2); Carbon Dioxide 28 mmol/L (22-32); Chloride 98 mmol/L (98-107); Estimated Glomerular Filt Rate > 60 mL/min (>60); Glucose 86 mg/dL (80-110); HEMOLYSIS < 15 (0-50); Potassium 4.8 mmol/L (3.4-5.1); Sodium 134 mmol/L (137-145)
[2024-08-08 13:44] LABS: TSH w/ Reflex to FT4 3.99 uIU/mL (0.47-4.68)
== END ==
PROVIDERS: Family Provider Internal Medicine; PCP Internal Medicine; Referring Provider Internal Medicine; Visit Provider Internal Medicine
DX: E03.9 Hypothyroidism, unspecified (principal); R73.01 Impaired fasting glucose
CPT/HCPCS: 36415; 80048; 83036; 84443

== ENCOUNTER → 2024-08-15 14:48 | Outpatient (CLI) | payer OTHER, SELFPAY ==
--- NOTE | 2024-08-15 14:49 | DI.RAD.S_ITS ---
PROCEDURE: XR DEXA AXIAL SKELETON INDICATIONS: osteopenia COMPARISON: [facility], [facility], XR DEXA AXIAL SKELETON, 06/09/2021, 11:26. FINDINGS: Lumbar Spine: (L1, L3, L4). Bone mineral density 1.112 g/cm2, T score 0.5. Left Femoral Neck: Bone mineral density 0.640 g/cm2, T score -1.9. Left Hip: Bone mineral density 0.798 g/cm2, T score -1.2. Fracture Risk Calculation (when applicable): 10-year fracture risk of a major osteoporotic fracture 15 percent and of a hip fracture 4.5 percent. (T score greater or equal to -1.0 to: NORMAL) (T score from -1.1 to -2.4: OSTEOPENIA) (T score less than or equal to -2.5: OSTEOPOROSIS) IMPRESSION: Osteopenia. Follow-up guidelines as follows: Osteoporosis: Consider a repeat DEXA and Vertebral Fracture Assessment (VFA) exam in 2 years or sooner if medically necessary, to reassess this patient's status. Osteopenia: Consider a repeat DEXA in 2-3 years to reassess this patient's status, or if there is a new clinical indication. Normal: Consider a repeat DEXA in 5 years or sooner, or if there is a new clinical indication. All treatment decisions require clinical judgment and consideration of individual patient factors, including patient preferences, comorbidities, previous drug use, risk factors not captured in the FRAX model (e.g., frailty, falls, vitamin D deficiency, increased bone turnover, interval significant decline in bone density ) and possible under- or over-estimation of fracture risk by FRAX. In addition, the NOF Guide recommends that FDA-approved medical therapies be considered in postmenopausal women and men age >= 50 years with a: * Hip or vertebral (clinical or morphometric) fracture * T-score of <=-2.5 at the spine or hip * Ten-year fracture probability by FRAX of >= 3% for hip fracture or >=20% for major osteoporotic fracture. Dictated by: Daniel Martell M.D. on 08/16/2024 at 16:17 Approved by: Daniel Martell M.D. on 08/16/2024 at 16:20
== END ==
PROVIDERS: Family Provider Internal Medicine; PCP Internal Medicine; Referring Provider Internal Medicine; Visit Provider Internal Medicine
DX: M85.89 Other specified disorders of bone density and structure, multiple sites (principal)
CPT/HCPCS: 77080

== ENCOUNTER → 2025-02-22 14:51 | Outpatient (CLI) | payer OTHER, SELFPAY ==
[2025-02-22 16:04] LABS: Blood Urea Nitrogen 20 mg/dL (7-17); Calcium 8.7 mg/dL (8.4-10.2); Carbon Dioxide 27 mmol/L (22-32); Chloride 99 mmol/L (98-107); Estimated Glomerular Filt Rate > 60 mL/min (>60); Glucose 102 mg/dL (70-99); HEMOLYSIS < 15 (0-50); Potassium 4.3 mmol/L (3.4-5.1); Sodium 133 mmol/L (137-145)
== END ==
PROVIDERS: Family Provider Internal Medicine; PCP Internal Medicine; Referring Provider Internal Medicine; Visit Provider Internal Medicine
DX: E87.1 Hypo-osmolality and hyponatremia (principal)
CPT/HCPCS: 36415; 80048

== ENCOUNTER → 2025-04-26 14:54 | Outpatient (CLI) | payer OTHER, SELFPAY ==
--- NOTE | 2025-04-26 14:55 | DI.MG.S_ITS ---
MM screening mammo BI: 04/26/2025. BI-RADS: 1 CLINICAL: 84-year old female for bilateral screening mammogram. No Tyrer-Cuzick risk score calculation due to patient's age being over 85 years old. No personal or first-degree family history of breast cancer. Current reported family history of breast cancer: paternal grandmother. PRIOR EXAMS: 04/14/2024, 03/30/2023, 03/26/2022, 03/25/2021, 03/22/2020, 03/21/2019, 03/02/2019, 02/28/2018, 12/01/2016, 11/25/2015. MAMMOGRAPHY TECHNIQUE: 2D and 3D (tomosynthesis) digital mammographic views obtained, with additional images as needed for full coverage. Current study was also evaluated with a Computer Aided Detection (CAD) system. DENSITY B. There are scattered areas of fibroglandular density. MAMMOGRAPHY FINDINGS Bilateral: No suspicious mass, asymmetry, microcalcification, or other abnormality seen. IMPRESSION: * No evidence of malignancy. RECOMMENDATIONS Bilateral * Annual screening mammography. OVERALL ASSESSMENT CATEGORY BI-RADS-1: Negative. The [employer] recommends annual screening mammography beginning at age 40 for women with average risk of breast cancer. ELECTRONICALLY SIGNED: Mihaela Juárez M.D. on 04/29/2025 at 04:38:17 PM PT Interpreting Station ID: [id number]
== END ==
LOC: MAMMO 14:55
PROVIDERS: Family Provider Internal Medicine; PCP Internal Medicine; Referring Provider Internal Medicine; Visit Provider Internal Medicine
DX: Z12.31 Encounter for screening mammogram for malignant neoplasm of breast (principal); Z80.3 Family history of malignant neoplasm of breast
CPT/HCPCS: 77063; 77067